=== PATIENT | female | born 1960 | race Caucasian/White ===

== ENCOUNTER 2020-07-04 07:50 | Emergency (ER) | payer BC ==
[~2020-07-04] VITALS: Ht 162.6 cm; Wt 71.7 kg
--- OUTSIDE RECORDS SUMMARY | ~2020-07-04 | XMS | Encounter Summary ---
Demographics + + + | Address | [address] | | | [place] [address] | + + + | Home Phone | | + + + | Preferred Language | Unknown | + + + | Marital Status | | + + + | Congregational Affiliation | 1076 | + + + | Race | White | + + + | Ethnic Group | Not or | + + + Author + + + | Author | [facility] | | | and [place] | + + + | Organization | [facility] | | | and [place] | + + + | Address | Unknown | + + + | Phone | Unavailable | + + + Support + + + + + | Name | Relationship | Address | Phone | + + + + + | Jose Watkins | ECON | [address] | | | | | [place] | | | | | [address] | | + + + + + | Dawit Kiser | ECON | Unknown | | + + + + + Care Team Providers + +------+ + | Care T Rail Turner Name | Role | Phone | + +------+ + PCP | Unavailable | + +------+ + Reason for Referral Service/Procedure (Routine) +--------+ + + + + + | Status | Reason | Specialty | Diagnoses / | Referred By | Referred To | | | | | Procedures | Contact | Contact | +--------+ + + + + + | Closed | Specialty | Gastroenterol | Diagnoses | Harri, | Harri, | | | Services | ogy | Screen for | Gulshan Escamilla MD | Gulshan Escamilla MD | | | Required | | colon cancer | [address], | | | | | Procedures | [place], [place] | [address] | | | | | [place] | [address] [place] | [place], | | | | | COLONOSCOPY, | [place], [place] | [place] [address] | | | | | DIAGNOSTIC | [address] | Phone: | | | | | [place] | Phone: | [phone] | | | | | COLONOSCOPY, | [phone] | Fax: | | | | | [place] | Fax: | [phone] | | | | | COLONOSCOPY, | [phone] | | | | | | REMV | | | | | | | LUCY [place]ES | | | +--------+ + + + + + Reason for Visit + +--------+ + | Reason | Onset | Comments | | | Date | | + +--------+ + | Appointment | 08/14/ | | | | 2013 | | + +--------+ + Encounter Details +--------+ + + + + | Date | Type | Department | Care Team | Description | +--------+ + + + + | 08/14/ | Telephone | [facility] | Gulshan Cifuentes MD | Appointment | | 2013 | | GASTROENTEROLOGY | [address], [facility] | | | | | [address] [facility] | [address] [place], [place] | | | | | [address] [place], [place] | [address] | | | | | [address] | | | | | | [phone] | | | +--------+ + + + + Social History + +-------+ +--------+------+ | Tobacco Use | Types | Packs/Day | Years | Date | | | | | Used | | + +-------+ +--------+------+ | Never Smoker | | | | | + +-------+ +--------+------+ + +---+---+---+ | Smokeless Tobacco: | | | | | Never Used | | | | + +---+---+---+ + + +---------+ + | Alcohol Use | Drinks/Week | oz/Week | Comments | + + +---------+ + | Yes | | | occasional | + + +---------+ + + + + | Sex Assigned at | Date Recorded | | | | + + + | Not on file | | + + + documented as of this encounter Miscellaneous Notes Telephone Encounter - Mónica Hein RN - 08/14/2014 4:11 PM PDTCalled Luisa and michael vann her Dr Cifuentes reviewed Dr Pérez's records and okayed scheduling colonoscopy only with IVCS. She's agreeable to this and glad she can do it in one trip. Reviewed PMH, PSH, meds and mary rgies with her as well as the prep instructions. Mailed prep instructions to her with map to [facility], questionnaire, Suprep coupon for help with co-pay, Suprep instructions, low residue di et. documented in t his encounter Plan of Treatment +--------+---------+ + + + | Date | Type | Specialty | Care Team | Description | +--------+---------+ + + + | 12/25/ | Office | Neurology | Sesar Hernandez, | | | 2020 | Visit | | YASMINE [place] | | | | | | [address] | | | | | | [place] [address] | | | | | | [phone] | | | | | | | | +--------+---------+ + + + | 01/16/ | Office | Cardiology | Tiffany Jonas, | | | 2020 | Visit | | MD [address] | | | | | | [place] | | | | | | [address] | | | | | | | | +--------+---------+ + + + + + +--------+ + + | Name | Type | Priori | Associated Diagnoses | Order Schedule | | | | ty | | | + + +--------+ + + | Ambulatory referral | Outpatient | Routin | Screen for colon | Expected: | | to Gastroenterology | Referral | e | cancer | 09/14/2014, Expires: | | | | | | 08/14/2015 | + + +--------+ + + documented as of this encounter Visit Diagnoses + + | Diagnosis | + + | Multiple sclerosis (HCC) - Primary Multiple sclerosis | + + | Screen for colon cancer Special screening for malignant neoplasms, colon | + + documented in this encounter"
--- OUTSIDE RECORDS SUMMARY | ~2020-07-04 | XMS | Encounter Summary ---
Demographics + + + | Address | [address] | | | [place] [address] | + + + | Home Phone | | + + + | Preferred Language | Unknown | + + + | Marital Status | | + + + | Anglican Affiliation | 1076 | + + + | Race | White | + + + | Ethnic Group | Not or | + + + Author + + + | Author | [facility] | | | and [place] | + + + | Organization | [facility] | | | and [place] | + + + | Address | Unknown | + + + | Phone | Unavailable | + + + Support + + + + + | Name | Relationship | Address | Phone | + + + + + | Jose Watkins | ECON | [address] | | | | | [place] | | | | | [address] | | + + + + + | Dawit Kiser | ECON | Unknown | | + + + + + Care Team Providers + +------+ + | Care Renal Technician Name | Role | Phone | + +------+ + | Derek Richards DO | PCP | | + +------+ + Reason for Visit +--------+--------+ + | Reason | Onset | Comments | | | Date | | +--------+--------+ + | Letter | 04/07/ | | | | 2020 | | +--------+--------+ + Encounter Details +--------+ + + + + | Date | Type | Department | Care Team | Description | +--------+ + + + + | 02/13/ | Telephone | [facility] | Sesar Hernandez, | Letter | | 2020 | | NEUROLOGY [address] | [address] | | | | | [address] | [facility] [address] | | | | | [place], [place] | [place] [address] | | | | | [address] | [phone] | | | | | [phone] | | | +--------+ + + + [...] + + +---------+ + | Yes | 2 Glasses of wine | 2.0 | | + + +---------+ + + + + | Sex Assigned at | Date Recorded | | | | + + + | Not on file | | + + + documented as of this encounter Miscellaneous Notes Telephone Encounter - Molly Wesley CMA - 02/14/2020 12:35 PM PDTTauni, here is the draft for the letter for Luisa to be part if a clean team documented in this encounter Plan of Treatment +--------+---------+ + + + | Date | Type | Specialty | Care Team | Description | +--------+---------+ + + + | 12/25/ | Office | Neurology | Sesar Hernandez, | | | 2020 | Visit | | Y[address]INE [place] | | | | | | [address] | | | | | | [place] [address] | | | | | | [phone] | | | | | | | | +--------+---------+ + + + | 01/16/ | Office | Cardiology | Tiffany Jonas, | | | 2020 | Visit | | MD [address] | | | | | | [place] | | | | | | [phone] | | | | | | | | +--------+---------+ + + + documented as of this encounter Visit Diagnoses Not on filedocumented in this encounter"
--- OUTSIDE RECORDS SUMMARY | ~2020-07-04 | XMS | Encounter Summary ---
Demographics + + + | Address | [address] | | | [place] [address] | + + + | Home Phone | | + + + | Preferred Language | Unknown | + + + | Marital Status | | + + + | Christian Affiliation | 1076 | + + + | Race | White | + + + | Ethnic Group | Not or | + + + Author + + + | Author | [facility] | | | and [place] | + + + | Organization | [facility] | | [...] [place] | | | | | [address] | | + + + + + | Dawit Kiser | ECON | Unknown | | + + + + + Care Team Providers + +------+ + | Care Inventory Control Associate Name | Role | Phone | + +------+ + | Derek Richards DO | PCP | | + +------+ + Reason for Visit + +--------+ + | Reason | Onset | Comments | | | Date | | + +--------+ + | Medication Refill | 12/06/ | | | | 2019 | | + +--------+ + Encounter Details +--------+--------+ + + + | Date | Type | Department | Care Team | Description | +--------+--------+ + + + | 12/06/ | Refill | [facility] | Sesar Hernandez, | Medication Refill | | 2019 | | NEUROLOGY [address] | [address] | | | | | [address] | [facility] [address] | | | | | [place], [place] | [place] [address] | | | | | [address] | [phone] | | | | | [phone] | | | +--------+--------+ + + + Social History + +-------+ [...] this encounter Miscellaneous Notes Telephone Encounter - Faviola Mccall Slip Maker - 12/06/2019 11:25 AM PSTPatie nt and pharmacy requesting 90 day supply. documented in this encounter Plan of Treatment +--------+---------+ + + + | Date | Type | Specialty | Care Team | Description | +--------+---------+ + + + | 12/25/ | Office | Neurology | Sesar Hernandez, | | | 2020 | Visit | | [address] | | | | | | [address] | | | | | | [place] [address] | | | | | | [phone] | | | | | | | | +--------+---------+ + + + | 01/16/ | Office | Cardiology | Tiffany Jonas, | | | 2020 | Visit | | [address] | | | | | | [place] | | | | | | [address] | | | | | | | | +--------+---------+ + + + documented as of this encounter Visit Diagnoses Not on filedocumented in this encounter"
--- OUTSIDE RECORDS SUMMARY | ~2020-07-04 | XMS | Encounter Summary ---
Demographics + + + | Address | [address] | | | [place] [address] | + + + | Home Phone | | + + + | Preferred Language | Unknown | + + + | Marital Status | | + + + | Islam Affiliation | 1076 | + + + | Race | White | + + + | Ethnic Group | Not or | + + + Author + + + | Author | [facility] | | | and [place] | + + + | Organization | [facility] | | | and [...] [place] | | | | | [address] | | + + + + + | Dawit Kiser | ECON | Unknown | | + + + + + Care Team Providers + +------+ + | Care Fast Food Server Name | Role | Phone | + +------+ + | Derek Richards DO | PCP | | + +------+ + Reason for Visit + + + | Reason | Comments | + + + | Follow-up | | + + + Evaluate & Treat (Routine) + +--------+ + + + + | Status | Reason | Specialty | Diagnoses / | Referred By | Referred To | | | | | Procedures | Contact | Contact | + +--------+ + + + + | Authorized | | | Diagnoses | Susie, | Mary, | | | | | Sensation | DO Derek | [place]aba | | | | | disturbance | [address] | [address] | | | | | of skin | [address]ri[address] | [address] | | | | | Procedures | [address] | [address] | | | | | NEURO FOLLOW | [place], | [place] | | | | | [place] | [place] | [address] | | | | | | [address] | Phone: | | | | | | Phone: | [phone] | | | | | | [phone] | Fax: | | | | | | Fax: | [phone] | | | | | | [phone] | | + +--------+ + + + + Encounter Details +--------+---------+ + + + | Date | Type | Department | Care Team | Description | +--------+---------+ + + + | 11/29/ | Office | [facility] | Sesar Hernandez, | Medication | | 2020 | Visit | NEUROLOGY [address] | [address] | monitoring encounter | | | | [address] | [address] | (Primary Dx) | | | | [place], [place] | [place] [address] | | | | | [address] | [phone] | | | | | [phone] | | | +--------+---------+ + + + Social History + +-------+ [...] + + documented as of this encounter Last Filed Vital Signs + + + + + | Vital Sign | Reading | Time Taken | Comments | + + + + + | Blood Pressure | 120/81 | 11/29/2019 10:54 AM | | | | | PST | | + + + + + | Pulse | 99 | 11/29/2019 10:54 AM | | | | | PST | | + + + + + | Temperature | - | - | | + + + + + | Respiratory Rate | - | - | | + + + + + | Oxygen Saturation | 99% | 11/29/2019 10:54 AM | | | | | PST | | + + + + + | Inhaled Oxygen | - | - | | | Concentration | | | | + + + + + | Weight | 75.2 kg (165 lb 12.8 | 11/29/2019 10:54 AM | | | | oz) | PST | | + + + + + | Height | 162.6 cm (5' 4") | 11/29/2019 10:54 AM | | | | | PST | | + + + + + | Body Mass Index | 28.46 | 11/29/2019 10:54 AM | | | | | PST | | + + + + + documented in this encounter Progress Notes Sesar Hernandez PA-C - 11/29/2019 10:45 AM PSTFormatting of this note might be different fro m the original. Neurologic Progress note Subjective: Patient ID: Luisa Watkins is a 59 y.o. female. HPI The patient returns today for follow up visit. She has relapsing-remitting multiple sclerosis. Interval history: Since last visit she reports she has been doing well overall. She has back pain which is i s pretty stable, takes tramadol 1-2 times daily as needed. 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 She takes short nap after work most days which helps for managing fatigue. No difficulty sleeping at night. No new focal neurological symptoms. She cares for her brother who has history of TBI with his finances and taking him to appoin tments. Increased stress at times, overall similar. She states not certain if Wellbutrin is working well. She has good days and some other day s with more feeling down or overwhelmed. She prefers not to increase or change the Wellbutr in at this time. She developed tongue numbness/paresthesia started early March 2018. The symptoms progressed over a few days to involve whole tongue and whole left side of face. No preceding infection, trauma, or dental procedure. No facial weakness or any other focal neurological symptoms. No difficulty swallow. MRI of the brain and cervical spine 04/09/2018 showed one new lesion left frontal area which doesn't correlate to new left facial and tongue numbness. No clear brainstem lesion. Left facial numbness resolved but has residual intermittent numbness of the tongue, less th an before. Diagnosis: She was diagnosed with multiple [place] [address] Bobby. She developed acute onset of right side numbness. She reports that she had abnormal MRI of the brain and cervical spine at C2. She had abnormal CSF study. She was diagnosed with mult iple sclerosis. Clinical course: Her clinical course has been characterized by right side numbness, Lhermi tte's phenomenon and chronic fatigue. Data: She had low Vitamin D level. She reports taking 5,000 IU Vit D consistently since 01/2014. MRI studies: MRI of the brain in January of 1999 reported as total 7 lesions, one with slight enhancement. MRI of the cervical spine on 02/27/99 reported as one lesion at C2 level. MRI of the brain in 04/2002 reported as no significant change. Repeated MRI of the brain on 10/13/2008 reported a few new lesions when compared to the stud y in 2001, total about 20 lesions total. No enhancement was reported. MRI of the brain and cervical spine at [facility] in [place] on 08/2012 with s table lesion burden in her brain, no enhancement. There was reported one new cervical cord lesion at C2 without enhancement, however according to her previous reports she has had cerv ical cord lesion at C2 since 1998. MRI brain [facility] 09/11/15 reported stable lesion burden without new or enha ncing lesions. Lumbar MRI 09/11/15 findings: 1) hyperlordotic lumbar curve 2) No pars defects 3) L5-S1 central disc bulge and high T2 signal intensity annular tear without neural imping ement 4) L4-5 broad based posterior disc bulge causing mild left L5 nerve root compression due t o subarticular recess stenosis. 5) Trace disc bulge at L3-4 without nerve root impingement 6) Mild tomoderate facet degenerative changes 7) Incidentally noted small retroperitoneal fluid collection ventral to T11 vertebral body having appearance of small seroma. Clinical relevance is uncertain. Repeated brain MRI 09/11/15 noted stable multiple sclerosis lesion burden overall. No new o r enhancing lesions. Other diagnostics: She was told that she had normal EEG study by Dr. [facility] and her somatosensory evoked p otential of lower extremities was abnormal. She had low Vit D level, on supplement. Last Vit D level 36 (04/2016). Disease modifying agent for multiple sclerosis : She started Avonex shortly after her diagnosis in 1998. She self discontinued Avonex for a bout 6-8 months in 2007. She changed to Rebif since 2007 due to increased symptoms with paresthesia and progression of her lesion burden. She has not been compliant with her Rebif injections for a few years off and on treatment. She changed to Tecfidera in February 2014, however she had significant side effects with back pain, body aches, diarrhea. She discontinued Tecfidera. With re-challenge she had recurren t symptoms. She discontinued the Tecfidera since March 2014. She has been off and on Rebif medication due to injection fatigue and difficulty stay in e routine of doing her injection. She does not have significant side effects for Rebif. She re-started Rebif consistently since early 2016. The following elements of the patient's history were reviewed and updated as appropriate. T hey are available elsewhere in the patient record. allergies, current medications, past fam karla history, past medical history, past social history, past surgical history and problem li st Review of Systems Constitutional: Positive for fatigue. Negative for activity change, appetite change, chills , diaphoresis, fever and unexpected weight change. HENT: Negative. Eyes: Negative for visual disturbance. Respiratory: Negative for cough, shortness of breath and wheezing. Cardiovascular: Negative for chest pain, palpitations and leg swelling. Gastrointestinal: Negative for abdominal pain, diarrhea, nausea and vomiting. Genitourinary: Negative for difficulty urinating and frequency. Musculoskeletal: Positive for back pain and myalgias. Negative for arthralgias, gait proble m, joint swelling, neck pain and neck stiffness. Skin: Negative for rash. Neurological: Positive for dizziness (if puts head down and back up quickly) and numbness ( tongue, not new). Negative for tremors, seizures, syncope, facial asymmetry, speech difficul ty, weakness and headaches. Psychiatric/Behavioral: Positive for dysphoric mood (good mood overall, occasional feeling lack of motivation, fatigue, stress). Negative for behavioral problems, confusion, decreased concentration and sleep disturbance. The patient is not nervous/anxious. All other systems reviewed and are negative. Objective: BP 120/81 | Pulse 99 | Ht 1.626 m (5' 4") | Wt 75.2 kg (165 lb 12.8 oz) | SpO2 99% | B IN 28.46 kg/m Neurologic Exam Mental Status Oriented to person, place, and time. Level of consciousness: alert Knowledge: good. Cranial Nerves CN II Visual gorman full to confrontation. Visual acuity: normal with correction CN III, IV, Pupils are equal, round, and reactive to light. Extraocular motions are normal. CN V Facial sensation intact. CN VII Facial expression full, symmetric. CN VIII Hearing: intact CN IX, X CN IX normal. CN X normal. CN XI Right sternocleidomastoid strength: normal Left sternocleidomastoid strength: normal Right trapezius strength: normal Left trapezius strength: normal CN XII CN XII normal. Motor Exam Muscle bulk: normal Overall muscle tone: normal Strength Strength 5/5 except as noted. Left shoulder not tested due to pain/recent injury. Remainder is 5/5 throughout. Sensory Exam Light touch normal. Pinprick normal. Gait, Coordination, and Reflexes Gait Gait: normal Tremor Resting tremor: absent Physical Exam Eyes: Extraocular Movements: EOM normal. Pupils: Pupils are equal, round, and reactive to light. Neurological: Mental Status: She is oriented to person, place, and time. Gait: Gait is intact. Assessment and Plan: 1) Relapsing-remitting type of multiple sclerosis diagnosed in 1998. She has been treated with Avonex initially and changed to Rebif since 2007. Overall since on Rebif she has stable course without clear new exacerbation, however over t conor she has injection fatigue and difficulty with compliance. She changed to Tecfidera in February 2014, however she developed significant side effects with body aches, worsening back pain and diarrhea. She restarted Rebif end of May 2014, however was off and on her treatment for a few years. last brain MRI 09/11/15 with no new or enhancing lesions. She prefers not to have frequent repeated MRI studies unless she has new symptoms/changes. Continue Rebif injections. Normal LFT and CBC 05/2019. Repeat LFT in [facility] [place], printed order given. 2) Chronic low back pain. Failed physical therapy. Encourage continue regular exercise/activity as tolerated. She takes once to twice daily tramadol with good benefit. Follow up 6 months or sooner if needed. documented in this e ncounter Plan of Treatment +--------+---------+ + + + | Date | Type | Specialty | Care Team | Description | +--------+---------+ + + + | 12/25/ | Office | Neurology | Sesar Hernandez, | | | 2020 | Visit | | [address] | | | | | | [address] | | | | | | [place] [address] | | | | | | [phone] | | | | | | | | +--------+---------+ + + + | 01/16/ | Office | Cardiology | Tiffany Jonas, | | | 2020 | Visit | | [address] | | | | | | [place] | | | | | | [address] | | | | | | | | +--------+---------+ + + + + +------+--------+ + + | Name | Type | Priori | Associated Diagnoses | Order Schedule | | | | ty | | | + +------+--------+ + + | Hepatic Function | Lab | Routin | Medication | 1 Occurrences | | Panel | | e | monitoring encounter | starting 11/29/2019 | | | | | | until 11/29/2020 | + +------+--------+ + + documented as of this encounter Visit Diagnoses + + | Diagnosis | + + | Medication monitoring encounter - Primary Encounter for therapeutic drug monitoring | + + documented in this encounter
--- OUTSIDE RECORDS SUMMARY | ~2020-07-04 | XMS | Encounter Summary ---
Demographics + + + | Address | [address] | | | [place] [address] | + + + | Home Phone | | + + + | Preferred Language | Unknown | + + + | Marital Status | | + + + | Scientologist Affiliation | 1076 | + + + | Race | White | + + + | Ethnic Group | Not or | + + + Author + + + | Author | [facility] | | | and [place] | + + + | Organization | [facility] | | | and [...] [place] | | | | | [address] | | + + + + + | Dawit Kiser | ECON | Unknown | | + + + + + Care Team Providers + +------+ + | Care Professional Fee Coder Name | Role | Phone | + +------+ + | Derek Richards DO | PCP | | + +------+ + Encounter Details +--------+ + + + + | Date | Type | Department | Care Team | Description | +--------+ + + + + | 04/20/ | Hospital | [facility] | Conversion | Pain | | 2018 | Encounter | CONVERSION [address] | Transaction, | | | | | [address] | Provider Unknown | | | | | [place], [place] | [phone] | | | | | [address] | | | | | | [phone] | | | +--------+ + + + [...] + + documented as of this encounter Medications at Time of Discharge + + + +---------+ + + | Medication | Sig | Dispensed | Refills | Start | End Date | | | | | | Date | | + + + +---------+ + + | armodafinil | Take 150 mg by mouth | | 0 | | | | (NUVIGIL) 150 mg | Daily as needed. | | | | | | tablet | | | | | | + + + +---------+ + + | cholecalciferol | Take 5,000 Units by | | 0 | | | | (VITAMIN D-3) 1,000 | mouth Daily. | | | | | | units capsule | | | | | | + + + +---------+ + + | ibuprofen | Take 100 mg by mouth | | 0 | | | | (ADVIL,MOTRIN) 100 | as needed. | | | | | | MG tablet | | | | | | + + + +---------+ + + | Melatonin 10 MG | Take 10 mg by mouth | | 0 | | | | TABS | nightly. | | | | | + + + +---------+ + + | estradiol | Place 1 patch onto | | 0 | | | | (TEDDY-DOT) 0.0375 | the skin Twice a | | | | 0 | | MG/24HR | week. | | | | | + + + +---------+ + + | interferon beta-1a | Inject 44 mcg under | | 0 | | | | (REBIF) 44 | the skin Three times | | | | 0 | | MCG/0.5ML injection | a week. | | | | | + + + +---------+ + + | metoprolol | TAKE 1 TABLET | | 0 | 04/18/20 | | | succinate | NIGHTLY | | | 16 | 0 | | (TOPROL-XL) 50 mg 24 | | | | | | | hr tablet | | | | | | + + + +---------+ + + | metoprolol | Take 50 mg by mouth | | 0 | | | | succinate | Daily. | | | | 0 | | (TOPROL-XL) 50 mg 24 | | | | | | | hr tablet | | | | | | + + + +---------+ + + | Multiple | Take 1 tablet by | | 0 | | | | Vitamins-Minerals | mouth Daily. | | | | 0 | | (MULTIVITAMIN PO) | | | | | | + + + +---------+ + + | traMADol (ULTRAM) | Take 50 mg by mouth | | 0 | | | | 50 mg tablet | nightly as needed. | | | | 9 | + + + +---------+ + + documented as of this encounter Plan of Treatment +--------+---------+ + + + | Date | Type | Specialty | Care Team | Description | +--------+---------+ + + + | 12/25/ | Office | Neurology | MickeySesar yao, | | | 2020 | Visit | | [place] | | | | | | [address] | | | | | | [place] [address] | | | | | | [phone] | | | | | | | | +--------+---------+ + + + | 01/16/ | Office | Cardiology | Tiffany Jonas, | | | 2020 | Visit | | MD Hong [place] | | | | | | [facility] [place] | | | | | | [address] | | | | | | | | +--------+---------+ + + + documented as of this encounter Procedures + +--------+ + + + | Procedure Name | Priori | Date/Time | Associated Diagnosis | Comments | | | ty | | | | + +--------+ + + + | MRI BRAIN W WO | Routin | 04/09/2018 | | Results for this | | CONTRAST | e | 11:53 PM | | procedure are in the | | | | PDT | | results section. | + +--------+ + + + documented in this encounter Results MRI Brain w wo Contrast (04/09/2018 11:53 PM PDT) + + | Specimen | + + | | + + + + + | Narrative | Performed At | + + + | This is a non-reportable procedure without a radiologist report and | | | is used for image storage only | | + + + + + | Procedure Note | + + | Philippe Orozco - 06/22/2019 1:29 AM PDT This is a non-reportable procedure | | without a radiologist report and isused for image storage only | + + documented in this encounter Visit Diagnoses + + | Diagnosis | + + | Pain Generalized pain | + + documented in this encounter"
--- OUTSIDE RECORDS SUMMARY | ~2020-07-04 | XMS | Encounter Summary ---
Demographics + + + | Address | [address] | | | [place] [address] | + + + | Home Phone | | + + + | Preferred Language | Unknown | + + + | Marital Status | | + + + | Mormonism Affiliation | 1076 | + + + | Race | White | + + + | Ethnic Group | Not or | + + + Author + + + | Author | [facility] | | | and [place] | + + + | Organization | [facility] | | | [...] [place] | | | | | [address] | | + + + + + | Dawit Kiser | ECON | Unknown | | + + + + + Care Team Providers + +------+ + | Care Communications Representative Name | Role | Phone | + +------+ + | Derek Richards DO | PCP | | + +------+ + Reason for Visit + +--------+ + | Reason | Onset | Comments | | | Date | | + +--------+ + | Medication Problem | 12/22/ | wrong prescription | | | 2019 | | + +--------+ + Encounter Details +--------+--------+ + + + | Date | Type | Department | Care Team | Description | +--------+--------+ + + + | 12/22/ | Refill | [facility] | Sesar Hernandez, | Medication Problem | | 2019 | | NEUROLOGY [address] | [address] | (wrong prescription) | | | | [address] | [facility] | | | | | [place], [place] | [place] [address] | | | | | [address] | [phone] | | | | | [phone] | | | +--------+--------+ + + + [...] this encounter Miscellaneous Notes Telephone Encounter - Remigio Vazquez, Search Manager - 12/22/2019 10:38 AM PSTCalnorma vann spoke to [facility] with [facility]'s [facility]. She stated that the patient has been getting t he syringes and she was shipped the auto injections. I let her know that it was okay for the m to fill the syringes for the patent. elephone Encounter - Teresa Ashley - 12/22/2019 10:24 A M PSTCorin, is calling regarding Medication Problem (wrong prescription) and would like a call back. Additional Call Details: Please call [phone] regarding interferon beta-1a (REBIF REBI DOSE) 44 mcg/0.5 mL injection. Patient indicated that she uses the syringes. If this is a symptom based call, was patient offered triage? Not Applicable If this is a symptom based call and you were unable to immediately transfer the call to a blessing mitchell electric shovel operator was caller made aware that if at any time she feels it is an emergency they sh ould call 911 or go to the nearest emergency room? not applicable documented in this encounter Plan of Treatment +--------+---------+ + + + | Date | Type | Specialty | Care Team | Description | +--------+---------+ + + + | 12/25/ | Office | Neurology | Sesar Hernandez, | | | 2020 | Visit | | Y[place]INE [place]INE | | | | | | [address] | | | | | | [place] [address] | | | | | | [phone] | | | | | | | | +--------+---------+ + + + | 01/16/ | Office | Cardiology | Tiffany Jonas, | | | 2020 | Visit | | MD [place] [address] | | | | | | [place] | | | | | | [phone] | | | | | | | | +--------+---------+ + + + documented as of this encounter Visit Diagnoses Not on filedocumented in this encounter"
--- OUTSIDE RECORDS SUMMARY | ~2020-07-04 | XMS | Encounter Summary ---
Demographics + + + | Address | [address] | | | [place] [address] | + + + | Home Phone | | + + + | Preferred Language | Unknown | + + + | Marital Status | | + + + | Hoahaoism Affiliation | 1076 | + + + | Race | White | + + + | Ethnic Group | Not or | + + + Author + + + | Author | [facility] | | | and [place] | + + + | Organization | [facility] | | | and [...] [place] | | | | | [address] | | + + + + + | Dawit Kiser | ECON | Unknown | | + + + + + Care Team Providers + +------+ + | Care Real Estate Services Administrator Name | Role | Phone | + +------+ + | Derek Richards DO | PCP | | + +------+ + Reason for Visit + +--------+ + | Reason | Onset | Comments | | | Date | | + +--------+ + | Appointment | 06/18/ | change to virtual appointment | | | 2019 | | + +--------+ + Encounter Details +--------+ + + + + | Date | Type | Department | Care Team | Description | +--------+ + + + + | 06/18/ | Telephone | [facility] | Sesar Hernandez | Appointment (change | | 2019 | | NEUROLOGY [address] | [place] [address] | to virtual | | | | [address] | [address] | appointment) | | | | [place] | [place] [address] | | | | | [address] | [phone] | | | | | [phone] | | | +--------+ + + + [...] Miscellaneous Notes Telephone Encounter - Remigio Vazquez, Urologic Nurse - 06/18/2020 4:19 PM PDTCalled cash erwin and let her know that Sesar is unable to do virtaul visits for any [place] patient's an d we do have to see them in office. She voiced understanding and was screened. Electronicall y signed by Remigio Vazquez Urologic Nurse at 06/18/2020 4:20 PM PDTTelephone Encounter - Merle Sullivan - 06/18/2020 3:03 PM PDTBrenda, is calling regarding Appointment (change to virtual appointment) and would like a call back. Additional Call Details: Patient stated appointment should be a video appointment. Please call back to confirm appointment has been changed. Home number If this is a symptom based call, was patient offered triage? Not Applicable If this is a symptom based call and you were unable to immediately transfer the call to a blessing mitchell corporate development officer was caller made aware that if at [...] | | | | | [place] [address] | | | | | | [phone] | | | | | | | | +--------+---------+ + + + | 01/16/ | Office | Cardiology | Tiffany Jonas, | | | 2020 | Visit | | MD [address] | | | | | | [place] | | | | | | [address] | | | | | | | | +--------+---------+ + + + documented as of this encounter Visit Diagnoses Not on filedocumented in this encounter"
--- OUTSIDE RECORDS SUMMARY | ~2020-07-04 | XMS | Clinical Summary ---
Demographics + + + | Address | [address] | | | [place] [address] | + + + | Home Phone | | + + + | Preferred Language | Unknown | + + + | Marital Status | | + + + | Scientology Affiliation | 1076 | + + + | Race | White | + + + | Ethnic Group | Not or | + + + Author + + + | Author | [facility] | | | and [place] | + + + | Organization | [facility] | | | and [...] [place] | | | | | [address] | | + + + + + | Dawit Kiser | ECON | Unknown | | + + + + + Care Team Providers + +------+ + | Care Inspector Cold Working Name | Role | Phone | + +------+ + | Derek Richards DO | PCP | | + +------+ + Allergies + + + + + + | Active Allergy | Reactions | Severity | Noted | Comments | | | | | Date | | + + + + + + | Clindamycin | Other (See Comments) | Medium | 08/19/20 | colitis | | | | | 12 | antibiotic induced | | | | | | colitis | + + + + + + | Codeine | Nausea Only, Rash | Medium | 08/19/20 | | | | | | 12 | | + + + + + + Medications + + + +---------+------+------+-------+ | Medication | Sig | Dispensed | Refills | Star | End | Statu | | | | | | t | Date | s | | | | | | Date | | | + + + +---------+------+------+-------+ | cholecalciferol | Take 5,000 Units by | | 0 | | | Activ | | (VITAMIN D-3) 1,000 | mouth Daily. | | | | | e | | units capsule | | | | | | | + + + +---------+------+------+-------+ | armodafinil | Take 150 mg by mouth | | 0 | | | Activ | | (NUVIGIL) 150 mg | Daily as needed. | | | | | e | | tablet | | | | | | | + + + +---------+------+------+-------+ | ibuprofen | Take 100 mg by mouth | | 0 | | | Activ | | (ADVIL,MOTRIN) 100 | as needed. | | | | | e | | MG tablet | | | | | | | + + + +---------+------+------+-------+ | Melatonin 10 MG | Take 10 mg by mouth | | 0 | | | Activ | | TABS | nightly. | | | | | e | + + + +---------+------+------+-------+ | Multiple | Take 1 tablet by | | 0 | | | Activ | | Vitamins-Minerals | mouth daily. | | | | | e | | (MULTIVITAMIN PO) | | | | | | | + + + +---------+------+------+-------+ | Fexofenadine HCl | Take 30 mg by mouth | | 0 | | | Activ | | (YESI PO) | daily. | | | | | e | + + + +---------+------+------+-------+ | estradiol | TK 1 T PO QD | | 0 | 02/1 | | Activ | | (ESTRACE) 1 mg | | | | 1/20 | | e | | tablet | | | | 19 | | | + + + +---------+------+------+-------+ | metoprolol | TAKE 1 TABLET | 30 | 0 | 01/1 | | Activ | | succinate | NIGHTLY | tablet | | 5/20 | | e | | (TOPROL-XL) 50 mg 24 | | | | 20 | | | | hr tablet | | | | | | | + + + +---------+------+------+-------+ | interferon beta-1a | Inject 44 mcg into | 12 mL | 5 | 01/2 | | Activ | | (REBIF REBIDOSE) 44 | the skin three times | | | 1/20 | | e | | mcg/0.5 mL | weekly. | | | 20 | | | | injection | | | | | | | + + + +---------+------+------+-------+ | traMADol (ULTRAM) | take 1 tablet by | 120 | 3 | 07/2 | | Activ | | 50 mg tablet | mouth every 6 hours | tablet | | 3/20 | | e | | | if needed for pain. | | | 20 | | | + + + +---------+------+------+-------+ | buPROPion | May increase to | 180 | 1 | 08/1 | | Activ | | (WELLBUTRIN XL) 150 | twice daily after 4 | tablet | | 1/20 | | e | | mg 24 hr tablet | weeks if needed.. | | | 20 | | | + + + +---------+------+------+-------+ | buPROPion | Take 1 tablet by | 180 | 1 | 11/10 | 06/09 | Disco | | (WELLBUTRIN SR) 100 | mouth 2 times daily. 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 55yo WF, doing relatively well, | | although she admits occasional palpitations, usually in the | | evenings while at rest. They usually brief in nature, no | | lightheadedness, chest discomfort, or shortness of breath | | associated with this. She remains active. Since last seen, one | | year ago, no surgical procedures or hospitalizations. Recent | | exercise tolerance tests show no ischemia, functional capacity is | | good, low risk. Tolerating medications. No changes in therapy. | | Yearly labs with PCP anticipated.Hx CABG: noHx PCI/stent: noHx | | ICD/Pacemaker: noLast Cath: naLast Echo: naLast Stress Test, | | 09/04/2015: 9:00min Biju, ECG (-) for ischemia, no arrhythmias, | | low risk.ECG, 08/11/2013: NSR (95bpm). | + + + + + | Multiple sclerosis | 01/08/2000 | + + + + + | Overview: Last Assessment & Plan: | | MS, managed by TAMIE Cornell and Dr Mcfarland. | + + Encounters +--------+ + + + + | Date | Type | Specialty | Care Team | Description | +--------+ + + + + | 06/19/ | Office | Neurology | Sesar Hernandez, | Multiple sclerosis | | 2020 | Visit | | PA-C | ([facility]) (Primary Dx) | +--------+ + + + + | 06/19/ | Telephone | Neurology | Sesar Hernandez, | Pharmacy / Med | | 2019 | | | [place] | (question) | +--------+ + + + + | 06/18/ | Telephone | Neurology | Sesar Hernandez, | Appointment (change | | 2019 | | | [place] | to virtual | | | | | | appointment) | +--------+ + + + + | 05/31/ | Refill | Neurology | Sesar Hernandez, | Medication Refill | | 2019 | | | PA-C | | +--------+ + + + + from Last 3 Months Family History + + +------+ + | Medical History | Relation | Name | Comments | + + +------+ + | Cancer | Brother | | Half brother/colon cancer | + + +------+ + | Cancer | Brother | | colon cancer | + + +------+ + | Kidney disease | Brother | | | + + +------+ + | Heart disease | Father | | | + + +------+ + | Cancer | Mother | | breast cancer, again in 2nd breast/breast | | | | | cancer | + + +------+ + | Diabetes | Mother | | | + + +------+ + | Heart disease | Mother | | | + + +------+ + | High cholesterol | Mother | | | + + +------+ + | Hypertension | Mother | | | + + +------+ + | Ovarian cancer | Other | | Paternal cousin | + + +------+ + | Diabetes | Paternal | | | | | Aunt | | | + + +------+ + + +------+ + + | Relation | Name | Status | Comments | + +------+ + + | Brother | | | | + +------+ + + | Brother | | | | + +------+ + + | Brother | | | | + +------+ + + | Brother | | | | + +------+ + + | Father | | | [place] | | | | (Age | | | | | 72) | | + +------+ + + | Mother | | | metastatic breast cancer | | | | (Age | | | | | 78) | | + +------+ + + | Other | | | | + +------+ + + | Paternal Aunt | | | | + +------+ + + Social History + +-------+ +--------+------+ [...] on file | | + + + Last Filed Vital Signs + + + + + | Vital Sign | Reading | Time Taken | Comments | + + + + + | Blood Pressure | 152/90 | 06/19/2020 11:19 AM | | | | | PDT | | + + + + + | Pulse | 77 | 06/19/2020 11:19 AM | | | | | PDT | | + + + + + | Temperature | 37.2 C (99 F) | 04/22/2018 9:29 AM | | | | | PDT | | + + + + + | Respiratory Rate | 16 | 09/14/2014 8:40 AM | | | | | PST | | + + + + + | Oxygen Saturation | 100% | 06/19/2020 11:19 AM | | | | | PDT | | + + + + + | Inhaled Oxygen | - | - | | | Concentration | | | | + + + + + | Weight | 75.1 kg (165 lb 9.6 | 06/19/2020 11:19 AM | | | | oz) | PDT | | + + + + + | Height | 162.6 cm (5' 4") | 06/19/2020 11:19 AM | | | | | PDT | | + + + + + | Body Mass Index | 28.43 | 06/19/2020 11:19 AM | | | | | PDT | | + + + + + Plan of Treatment +--------+---------+ + + + | Date | Type | Specialty | Care Team | Description | +--------+---------+ + + + | 12/25/ | Office | Neurology | Sesar Hernandez, | | | 2020 | Visit | | [place] | | | | | | [address] | | | | | | [place] [address] | | | | | | [phone] | | | | | | | | +--------+---------+ + + + | 01/16/ | Office | Cardiology | Tiffany Jonas, | | | 2020 | Visit | | [address] | | | | | | [place] | | | | | | [address] | | | | | | | | +--------+---------+ + + + + + + + + | Health Maintenance | Due Date | Last | Comments | | | | Done | | + + + + + | Hepatitis C | | | | | Screening | 1 | | | + + + + + | Medication | | | | | Management | 1 | | | + + + + + | Urine Drug Screening | | | | | | 7 | | | + + + + + | Vaccine: | | | | | Dtap/Tdap/Td (1 - | 0 | | | | Tdap) | | | | + + + + + | Cervical Cancer | | | | | Screening (Pap) | 1 | | | + + + + + | Vaccine: Zoster (1 | | | | | of 2) | 1 | | | + + + + + | Breast Cancer | | | | | Screening | 6 | | | + + + + + | Med Mgmt: BUN | | 03/30/20 | | | | 9 | 18, | | | | | 01/11/20 | | | | | 14 | | + + + + + | Med Mgmt: Cr | | 03/30/20 | | | | 9 | 18, | | | | | 01/11/20 | | | | | 14 | | + + + + + | Med Mgmt: Vit D | | 03/30/20 | | | | 9 | 18, | | | | | 04/21/20 | | | | | 17, | | | | | 01/11/20 | | | | | 14 | | + + + + + | Vaccine: Influenza | | | | | (#1) | 0 | | | + + + + + | Colorectal Cancer | | 09/14/20 | | | Screening | 4 | 14, | | | (Colonoscopy) | | 09/14/20 | | | | | 14 | | + + + + + Results Not on filefrom Last 3 Months Insurance +---------+--------+ +--------+ +---------+------+ | Payer | Benefi | Subscriber | Effect | Phone | Address | Type | | | t Plan | ID | marika | | | | | | / | | Dates | | | | | | Group | | | | | | +---------+--------+ +--------+ +---------+------+ | BCBS | BCBS | [id number] | 11/09/19 | | | PPO | | | OOS | 7 | 11-Pre | | | | | | PPO | | sent | | | | +---------+--------+ +--------+ +---------+------+ | PREMERA | PREMER | [id number] | 11/09/19 | [phone] | | PPO | | | A | 7 | 18-Pre | 0 | | | | | PREFER | | sent | | | | | | RED | | | | | | +---------+--------+ +--------+ +---------+------+ + +--------+ +--------+ + + | Guarantor Name | Accoun | Relation to | Date | Phone | Billing Address | | | t Type | Patient | of | | | | | | | | | | + +--------+ +--------+ + + | Luisa Watkins | Person | Self [birth year] | [address] | | | al/Fam | | 1960 | [phone] | [place] | | | [place] | | | [address] (Home) | [address] | + +--------+ +--------+ + + | Luisa Watkins | Person | Self [birth year] | [address] | | | al/Fam | | 1960 | [phone] | [place] | | | [place] | | | 8 (Home) | [address] | | | | | | [phone] | | | | | | | 1 (Work) | | + +--------+ +--------+ + + Advance Directives + + + + + | Type | Date Recorded | Patient | Explanation | | | | Lotus Notes Developer | | + + + + + | Power of | | | | | Coating Inspector | | | | + + + + + | Advance | 09/14/2014 6:58 | | | | Directive | AM | | | + + + + +
--- OUTSIDE RECORDS SUMMARY | ~2020-07-04 | XMS | Encounter Summary ---
Demographics + + + | Address | [address] | | | [place] [address] | + + + | Home Phone | | + + + | Preferred Language | Unknown | + + + | Marital Status | | + + + | Pentecostalism Affiliation | [id number] | + + + | Race | White | + + + | Ethnic Group | Not or | + + + Author + + + | Author | [facility] | | | and [place] | + + + | Organization | [facility] | | | and [...] [place] | | | | | [address] | | + + + + + | Dawit Kiser | ECON | Unknown | | + + + + + Care Team Providers + +------+ + | Care Management Engineer Name | Role | Phone | + +------+ + | Derek Richards DO | PCP | | + +------+ + Encounter Details +--------+---------+ + + + | Date | Type | Department | Care Team | Description | +--------+---------+ + + + | 09/14/ | Surgery | [facility] | Gulshan Cifuentes MD | COLONOSCOPY | | 2014 | | MED [facility] | [address], [place] | | | | | [address] | [address] [place], [place] | | | | | [place], [place] | [address] | | | | | [address] | | | | | | [phone] | | | +--------+---------+ + + + [...] + + + | Blood Pressure | 96/48 | 09/14/2014 9:30 AM | | | | | PST | | + + + + + | Pulse | 81 | 09/14/2014 9:30 AM | | | | | PST | | + + + + + | Temperature | 37 C (98.6 F) | 09/14/2014 7:57 AM | | | | | PST | | + + + + + | Respiratory Rate | 16 | 09/14/2014 8:40 AM | | | | | PST | | + + + + + | Oxygen Saturation | 95% | 09/14/2014 9:30 AM | | | | | PST | | + + + + + | Inhaled Oxygen | - | - | | | Concentration | | | | + + + + + | Weight | 74.5 kg (164 lb 3.9 | 09/14/2014 7:57 AM | | | | oz) | PST | | + + + + + | Height | 162.6 cm (5' 4") | 09/14/2014 7:57 AM | | | | | PST | | + + + + + | Body Mass Index | 28.19 | 09/14/2014 7:57 AM | | | | | PST | | + + + + + documented in this encounter Discharge Instructions Pamela Abbasi RN - 09/14/2014Formatting of this note might be diffe rent from the original. Colorectal Cancer Screening Colorectal cancer (cancer in the colon or rectum) is aleading cause of cancer deaths in [facility]. But it doesn t have to be. When this cancer is found and removed early, the chances of a full recovery are very good. Because colorectal cancer rarely causes sympto ms in its early stages, screening for the disease is important. It s even more crucial if you have risk factors for the disease. Learn more about colorectal cancer and its risk facto rs. Then talk to your doctor about being screened. You could be saving your own life. Risk Factors for Colorectal Cancer Your risk of having colorectal cancer increases if you: Are 50 years of age or older Have a family history or personal history of colorectal cancer orpolyps Have a personal history of type 2 diabetes, Crohn s disease, or ulcerative colitis Have an inherited genetic syndrome like Ybarra syndrome (also known as HNPCC) or familial adenomatous polyposis Are very overweight Smoke Drink a lot of alcohol Eat a lot of red or processed meat The Colon and Rectum A VALERIA can detect a growth in the rectum or anus. Waste from food you eat enters the colon from the small intestine. As it travels through th e colon, the waste (stool) loses water and becomes more solid. Intestinal muscles push it to osman the sigmoid the last section of the colon. Stool then moves into the rectum, where it s stored until it s ready to leave the body during a bowel movement. How Cancer Develops Polyps are growths that form on the inner lining of the colon or rectum. Most are benign, w hich means they aren t cancerous. But over time, some polyps can become malignant (cancero us). This occurs when cells in these polyps begin growing abnormally. In time, malignant nico ls invade more and more of the colon and rectum. The cancer may also spread to nearby organs or lymph nodes or to other parts of the body. Finding and removing polyps can help prevent cancer from ever forming. Your Screening Screening means looking for a medical problem before you have symptoms. During screening fo r colorectal cancer, your doctor will ask about your medical history, examine you, and do on e or more tests. History and Exam Medical history. Your doctor will ask about your medical history. Mention if a family me mber has had colon cancer or polyps. Also mention any health problems you have had in the pa st. Digital rectal exam (VALERIA). During a VALERIA, the doctor inserts a lubricated gloved finger i nto the rectum. The test is painless and takes less than a minute. Doctors agree that this t est alone is not enough to screen for colorectal cancer. Screening Test Options Fecal occult blood test or fecal immunochemical test These tests check for occult blood in stool (blood you can t see). Hidden blood may be a sign of colon polyps or cancer. A small sample of stool is tested for blood in a laboratory. Most often, you collect this sample at home using a kit your doctor gives you. Follow the i nstructions carefully for using this kit. You might need to avoid certain foods and medicati ons before the test, as directed. Barium enema with contrast This test uses X-rays to provide images of the entire colon and rectum. The day before this test, you will need to do a bowel prep to clean out the colon and rectum. A bowel prep is a liquid diet plus strong laxatives or enemas. You will be awake for the test, but you may be given medication to help you relax. At the start of the test, a radiologist (a doctor who s pecializes in imaging tests) places a soft tube into the rectum. The tube is used to fill th e colon with a contrast liquid (barium) and air. This can be uncomfortable for some people. The liquid helps the colon show up clearly on the X-rays. Because the test uses X-rays, it e xposes you to a small amount of radiation. Virtual colonoscopy This exam is also called a CT colonography. Ituses a series of X-ray photographs to creat e a 3-D view of the colon and rectum. The day before the test, you will need to do a bowel p rep to clean out your colon. Your health care provider will give you instructions on how to do this. During the procedure, you will lie on a table that is part of a special X-ray machi ne called a CT machine. A small tube will be placed into your rectum to fill the colon and r ectum with air. This can be uncomfortable for some people. Then, the table will move into th e machine and photos will be taken of your colon and rectum. A computer will combine these p hotos to create a 3-D picture. Because the test uses X-rays, it exposes you to a small amoun t of radiation. Scope exams Colonoscopy.This is the best test doctors have for finding and removing colorectal maninder yps. The day before the test, you will do a bowel prep. This is a liquid diet plus a strong laxative solution or an enema. The bowel prep willcleanse your colon. You will be given in structions for this. Just before the test, you are given a medication to make you sleepy. Th en, a long, flexible, lighted tube called a colonoscope is gently inserted into the rectum a nd guided through the entire colon. Images of the colon are viewed on a video screen. Any po lyps that are found are removed and sent to a lab for testing. If a polyp can t be removed , a sample of tissue is taken and the polyp might be removed later during surgery. Sigmoidoscopy.This test is similar to colonoscopy, but focuses only on the sigmoid col on and rectum. As with colonoscopy, bowel prep must be done the day before this test. It iglesia ht not need to be as complete as the bowel prep for a colonoscopy. You are awake during the procedure, but you may be given medication to help you relax. During the test, the doctor gu ides a thin, flexible, lighted tube called a sigmoidoscope through your rectum and lower col on. The images are displayed on a video screen. Polyps are removed, if possible, and sent to a lab for testing. Colonoscopy is the only screening test that lets your doctor see the entire colon and rectu m. This test also lets your doctor remove any pieces of tissue that need to be looked at by a lab. If something suspicious is found using any of these other tests, you will likely need a colonoscopy. When to Call Your Doctor After a Test Call your doctor if you have any of the following after any screening test: Bleeding Fever over 101F (38.8C) Abdominal pain [id number] [facility], [address] [place] [address], [place] [address]. All rights reserve d. This information is not intended as a substitute for professional medical care. Always fo llow your healthcare professional's instructions. documented in this encounter Medications at Time of Discharge + + + +---------+--------+ + | Medication | Sig | Dispensed | Refills | Start | End Date | | | | | | Date | | + + + +---------+--------+ + | armodafinil | Take 150 mg by mouth | | 0 | | | | (NUVIGIL) 150 mg | Daily as needed. | | | | | | tablet | | | | | | + + + +---------+--------+ + | cholecalciferol | Take 5,000 Units by | | 0 | | | | (VITAMIN D-3) 1,000 | mouth Daily. | | | | | | units capsule | | | | | | + + + +---------+--------+ + | ibuprofen | Take 100 mg by mouth | | 0 | | | | (ADVIL,MOTRIN) 100 | as needed. | | | | | | MG tablet | | | | | | + + + +---------+--------+ + | Melatonin 10 MG | Take 10 mg by mouth | | 0 | | | | TABS | nightly. | | | | | + + + +---------+--------+ + | estradiol | Place 1 patch onto | | 0 | | | | (VIVELLE-DOT) 0.0375 | the skin Twice a | | | | 0 | | MG/24HR | week. | | | | | + + + +---------+--------+ + | interferon beta-1a | Inject 44 mcg under | | 0 | | | | (REBIF) 44 | the skin Three times | | | | 0 | | MCG/0.5ML injection | a week. | | | | | + + + +---------+--------+ + | metoprolol | Take 50 mg by mouth | | 0 | | | | succinate | Daily. | | | | 0 | | (TOPROL-XL) 50 mg 24 | | | | | | | hr tablet | | | | | | + + + +---------+--------+ + | Multiple | Take 1 tablet by | | 0 | | | | Vitamins-Minerals | mouth Daily. | | | | 0 | | (MULTIVITAMIN PO) | | | | | | + + + +---------+--------+ + | traMADol (ULTRAM) | Take 50 mg by mouth | | 0 | | | | 50 mg tablet | nightly as needed. | | | | 9 | + + + +---------+--------+ + documented as of this encounter H&P Notes Gulshan Cifuentes MD - 09/13/2014 10:10 AM PST PRE-ENDOSCOPY HISTORY AND PRE-SEDATION ASSESSMENT PATIENT NAME: Luisa Watkins : 1960 TODAY'S DATE: 09/14/2014 PLANNED PROCEDURE: colonoscopy PERTINENT HISTORY/INDICATION FOR PROCEDURE: Luisa Watkins is a 54 y.o. female who is u ndergoing colonoscopy for colon cancer screening. Patient has family history of colon cance r in her brother at age 54. PAST HISTORY: Past Medical History Diagnosis Date Multiple sclerosis (HCC) January 2000 Polycystic ovaries May 1991 Hirsutism May 1991 Varicose veins February 2001 PAST SURGICAL HISTORY Past Surgical History Procedure Date Ablation of dysrhythmic focus 04.30.12 Ablate Heart Dysrhythm focus Laparoscopy 11.22.10 remove right adnexa Excision of right lower quadrant subcutaneous mass/injection reaction 11.22.10 Bladder suspension 07.31.08 for SHIVA Rectocele repair 07.31.08 Hysterectomy 07.31.08 [facility] Bilateral salpingectomy Cholecystectomy, laparoscopic Varicose vein surgery right groin Breast reduction surgery 1983 Tonsillectomy 1971 Rt ovary HOME MEDS: Prior to Admission medications Medication Sig Taking? armodafinil (NUVIGIL) 150 mg tablet Take 150 mg by mouth Daily as needed. cholecalciferol (VITAMIN D-3) 1,000 units capsule Take 5,000 Units by mouth Daily. estradiol (VIVELLE-DOT) 0.0375 MG/24HR Place 1 patch onto the skin Twice a week. interferon beta-1a (REBIF) 44 MCG/0.5ML injection Inject 44 mcg under the skin Three times a week. metoprolol succinate (TOPROL-XL) 50 mg 24 hr tablet Take 50 mg by mouth Daily. Multiple Vitamins-Minerals (MULTIVITAMIN PO) Take 1 tablet by mouth Daily. sodium sulfate-potassium sulfate-magnesium sulfate (SUPREP BOWEL PREP) oral solution Take 1 st dose at 4PM And 2nd dose at 8PM. The day prior to procedure traMADol (ULTRAM) 50 mg tablet Take 50 mg by mouth nightly as needed. ALLERGIES Allergies Allergen Reactions Clindamycin Other (See Comments) colitis Codeine Nausea Only ASA CLASSIFICATION 2 EXAMINATION: Blood pressure 133/82, pulse 88, temperature 37 C (98.6 F), temperature source Tympanic , resp. rate 16, height 1.626 m (5' 4"), weight 74.5 kg (164 lb 3.9 oz), SpO2 97.00%. General: Alert and orientedx3 Throat: Normal Lungs: Clear Heart: Regular rate and rhythm with out significant murmur Abdomen: flat, normal bowel sounds. Soft, nontender 1. Available medical records have been reviewed. 08/16 with laboratory she questionna jenae 2. Medication list reviewed. IMPRESSION: Colon cancer screening in an individual with a history of colon cancer in a f irst degree relative Patient appropriate for procedure. PLAN: 1. Proceed with procedure as stated above with moderate sedation/analgesia 2. Procedure, indications, risks and alternatives explained to patient/family and they agre ed to proceed and consent was signed. 3. Patient will be reevaluated immediately (1-2 minutes) before sedation administration and approved for the plan as stated above. Electronically Signed by: Gulshan Cifuentes MD 09/14/2014 [facility] Portions of this chart may have been created with [employer] voice recognition software. Occasi onal wrong-word or sound-alike substitutions may have occurred due to the inherent nieto itations of voice recognition software. Please read the chart carefully and recognize, using context, where these substitutions have occurred documented in this en counter Procedure Notes [facility] SCAN [facility] - 09/14/2014 12:00 AM PSTAssociated Order(s): COLONOSCOPYElectronically si gned by Ho Warren at 09/14/2014 8:45 AM PSTdocumented in this encounter Miscellaneous Notes Plan of Care - ONBASE SCAN [facility] - 09/15/2014 12:00 AM PST lan of Care - ONBASE SCAN [facility] - 09/15/2014 12:00 AM PSTElect ronically signed by Ho Warren at 09/15/2014 5:46 PM PSTMiscellaneous - ONBASE SCAN [facility] - 09/15/2014 12:00 AM PST ed ation Documentation - Keara Aaron RN - 09/14/2014 8:37 AM PSTNO COLONIC ABNORMALITI ES SEEN edation Doc umentation Keara Cardona RN - 09/14/2014 8:20 AM PSTIV SITE IN RIGHT HAND NOT RUNNI NG, FLUSHED WITHOUT POSITIVE RESULTS / RESTARTED TO LAC-22 JELCO iscellaneous - LOHIMA LORY OCONNELL - 09/14/2014 1 2:00 AM PST documented in thi s encounter Plan of Treatment +--------+---------+ + + + | Date | Type | Specialty | Care Team | Description | +--------+---------+ + + + | 12/25/ | Office | Neurology | Sesar Hernandez, | | | 2020 | Visit | | YASMINE [facility] | | | | | | [address] | | | | | | [place] [address] | | | | | | [phone] | | | | | | | | +--------+---------+ + + + | 01/16/ | Office | Cardiology | Tiffany Jonas, | | | 2020 | Visit | | MD [place] | | | | | | [place] | | | | | | [id number] | | | | | | | | +--------+---------+ + + + documented as of this encounter Procedures + +--------+ + + + | Procedure Name | Priori | Date/Time | Associated Diagnosis | Comments | | | ty | | | | + +--------+ + + + | COLONOSCOPY | | 09/14/2014 | Special screening | | | | | 8:00 AM | for malignant | | | | | PST | neoplasms, colon | | + +--------+ + + + | COLONOSCOPY | Routin | 09/14/2014 | | Results for this | | | e | 7:40 AM | | procedure are in the | | | | PST | | results section. | + +--------+ + + + documented in this encounter Results COLONOSCOPY (09/14/2014 7:40 AM PST) + + | Specimen | + + | | + + + + -+ | Narrative | Performed At | + + -+ | | [facility] | | GastroenterologyPatient Name: Luisa WatkinsProcedure Date: 09/14/2014 | [facility] | | 7:40 AMMRN: [id number] #: [id number] of : | | | 1960dmit Type: AmbulatoryAge: 54Room: [facility] 01Gender: FemaleNote | | | Status: FinalizedAttending MD: Gulshan Cifuentes, [facility]rocedure: | | | ColonoscopyIndications: Screening in patient at increased | | | risk: Colorectal cancer in brother before | | | age 60Providers: Gulshan Cifuentes MD, Keara Aaron RN, | | | Cari Krueger, TechnicianReferring MD: | | | Derek Garcia DO (Referring ), Apple Pérez MD | | | (Referring )Medicines: Midazolam 3 mg | | | IV, Meperidine 100 mg IV, Oxygen 4 | | | liters/min nasocannulaComplications: No immediate complications. | | | Estimated blood loss: None.Procedure: Pre-Anesthesia | | | Assessment: - Prior to the procedure, a History and Physical was | | | performed, and patient medications, allergies and | | | sensitivities were reviewed. The patient's tolerance of | | | previous anesthesia was reviewed. - Prior to the procedure, a | | | History and Physical was performed, and patient medications and | | | allergies were reviewed. The patient is competent. The risks | | | and benefits of the procedure and the sedation options and | | | risks were discussed with the patient. All questions were | | | answered and informed consent was obtained. Patient identification and | | | proposed procedure were verified by the physician, the nurse | | | and the telecommunications field technician in the endoscopy suite. Mental Status | | | Examination: normal. Airway Examination: normal oropharyngeal | | | airway and neck mobility and Mallampati Class II (the uvula but | | | not tonsillar pillars visualized). Respiratory Examination: | | | clear to auscultation. CV Examination: normal. Prophylactic | | | Antibiotics: The patient does not require prophylactic | | | antibiotics. Prior Anticoagulants: The patient has taken no previous | | | anticoagulant or antiplatelet agents. ASA Grade Assessment: II - | | | A patient with mild systemic disease. After reviewing the | | | risks and benefits, the patient was deemed in satisfactory | | | condition to undergo the procedure. The anesthesia plan was to | | | use moderate sedation / analgesia (conscious sedation). | | | Immediately prior to administration of medications, the patient | | | was re-assessed for adequacy to receive sedatives. The heart | | | rate, respiratory rate, oxygen saturations, blood pressure, | | | adequacy of pulmonary ventilation, and response to care were | | | monitored throughout the procedure. The physical status of the patient | | | was re-assessed after the procedure. - After reviewing | | | the risks and benefits, the patient was deemed in satisfactory | | | condition to undergo the procedure. - Immediately prior to | | | administration of medications, the patient was re-assessed for | | | adequacy to receive sedatives. - The heart rate, respiratory | | | rate, oxygen saturations, blood pressure, adequacy of pulmonary | | | ventilation, and response to care were monitored throughout | | | the procedure. - The physical status of the patient was | | | re-assessed after the procedure. After I obtained informed | | | consent, the scope was passed under direct vision. Throughout | | | the procedure, the patient's blood pressure, pulse, and oxygen | | | saturations were monitored continuously. The endoscope was | | | introduced through the anus and advanced to the cecum, identified by | | | the appendiceal orifice, ileocecal valve and palpation. The | | | colonoscopy was somewhat difficult due to a tortuous colon. | | | Successful completion of the procedure was aided by using | | | manual pressure, straightening and shortening the scope to | | | obtain bowel loop reduction and using scope torsion. The | | | quality of the bowel preparation was good.Findings: The perianal | | | and digital rectal examinations were normal. Pertinent | | | negatives include normal sphincter tone and no palpable rectal | | | lesions. The sigmoid colon and descending colon were moderately | | | tortuous. The descending colon and transverse colon were | | | moderately redundant. The exam was otherwise without | | | abnormality. The retroflexed view of the distal rectum and anal | | | verge was normal and showed no anal or rectal | | | abnormalities.Impression: - Tortuous colon. - Redundant | | | colon. - The examination was otherwise normal. - The | | | distal rectum and anal verge are normal on retroflexion | | | view.Recommendation: - Discharge patient to home (ambulatory). | | | - Return to previous diet today. - Continue present | | | medications. - Repeat colonoscopy in 5 years for screening | | | purposes. - Return to primary care physician as previously | | | scheduled. - Telephone GI clinic if symptomatic.Gulshan Cifuentes | | | 09/14/2014 8:42 AMThis report has been signed electronically.Number | | | of Addenda: 0Note Initiated On: 09/14/2014 7:40 AMScope Withdrawal | | | Time: 0 hours 6 minutes 51 seconds Total Procedure Duration: 0 hours | | | 10 minutes 14 seconds Scope In: 8:25:22 AMScope Out: 8:35:36 AM | | | [facility], [address], [place] | | | [address] | | | - Return to previous diet today. | | | - Continue present medications. | | | - Repeat colonoscopy in 5 years for screening purposes. | | | - Return to primary care physician as previously scheduled. | | | - Telephone GI clinic if symptomatic. | | |Gulshan Cifuentes MD | | |09/14/2014 8:42 AM | | |This report has been signed electronically. | | |Number of Addenda: 0 | | |Note Initiated On: 09/14/2014 7:40 AM | | |Scope Withdrawal Time: 0 hours 6 minutes 51 seconds | | |Total Procedure Duration: 0 hours 10 minutes 14 seconds | | |Scope In: 8:25:22 AM | | |Scope Out: 8:35:36 AM | | | [facility], [address], [place] | | | [address] | | + + -+ + + | Transcriptions | + + | Zay Warrenpa - 09/14/2014 12:00 AM PST | + + + +---------+ + + | Performing | Address | City/State/Zipcode | Phone Number | | Organization | | | | + +---------+ + + | [facility] | | | | + +---------+ + + documented in this encounter Visit Diagnoses + + | Diagnosis | + + | Special screening for malignant neoplasms, colon | + + documented in this encounter Administered Medications + +--------+ +--------+------+------+ | Medication Order | MAR | Action | Dose | Rate | Site | | | Action | Date | | | | + +--------+ +--------+------+------+ | meperidine (DEMEROL) 100 mg/mL | Given | 09/14/20 | 100 mg | | | | injection PRN, Pain, Starting | | 14 8:21 | | | | | [place] 09/14/14 at 0821 | | AM PST | | | | + +--------+ +--------+------+------+ +---+---+ | | | +---+---+ + +-------+ +------+---+---+ | midazolam (VERSED) 5 mg/mL | Given | 09/14/20 | 1 mg | | | | injection PRN, Anxiety, Starting | | 14 8:27 | | | | | [place] 09/14/14 at 0824 | | AM PST | | | | + +-------+ +------+---+---+ +-------+ +------+---+---+ | Given | 09/14/20 | 2 mg | | | | | 14 8:24 | | | | | | AM PST | | | | +-------+ +------+---+---+ +---+---+ | | | +---+---+ documented in this encounter
--- OUTSIDE RECORDS SUMMARY | ~2020-07-04 | XMS | Encounter Summary ---
Demographics + + + | Address | [address] | | | [place] [address] | + + + | Home Phone | | + + + | Preferred Language | Unknown | + + + | Marital Status | | + + + | Lutheran Affiliation | 1076 | + + + | Race | White | + + + | Ethnic Group | Not or | + + + Author + + + | Author | [facility] | | | and [place] | + + + | Organization | [facility] | | [...] [place] | | | | | [address] | | + + + + + | Dawit Kiser | ECON | Unknown | | + + + + + Care Team Providers + +------+ + | Care Material Attendant Name | Role | Phone | + +------+ + | Derek Richards DO | PCP | | + +------+ + Reason for Visit +--------+--------+ + | Reason | Onset | Comments | | | Date | | +--------+--------+ + | Other | 10/19/ | medication refill | | | 2018 | | +--------+--------+ + Encounter Details +--------+ + + + + | Date | Type | Department | Care Team | Description | +--------+ + + + + | 10/19/ | Telephone | [facility] | Molly Wesley, | Other (medication | | 2018 | | NEUROLOGY [address] | [address] C[address]TER | refill) | | | | [address] | | | | | | [place], [place] | | | | | | [address] | | | | | | [phone] | | | +--------+ + + + [...] Telephone Encounter - Molly Wesley CMA - 10/19/2019 9:10 AM PSTCalled patient and left detailed message to inform her that prescription for Tramadol has been approved and faxed to [facility]. Tdocumented in this encounter Plan of Treatment +--------+---------+ + + + | Date | Type | Specialty | Care Team | Description | +--------+---------+ + + + | 12/25/ | Office | Neurology | Sesar Hernandez, | | | 2020 | Visit | | [address] | | | | | | [address] | | | | | | [place] [address] | | | | | | [phone] | | | | | | | | +--------+---------+ + + + | 01/16/ | Office | Cardiology | Tiffany Jonas, | | | 2020 | Visit | | MD [address] | | | | | | [place] | | | | | | [phone] | | | | | | | | +--------+---------+ + + + documented as of this encounter Visit Diagnoses Not on filedocumented in this encounter"
--- OUTSIDE RECORDS SUMMARY | ~2020-07-04 | XMS | Encounter Summary ---
Demographics + + + | Address | [address] | | | [place] [address] | + + + | Home Phone | | + + + | Preferred Language | Unknown | + + + | Marital Status | | + + + | Voodoo Affiliation | 1076 | + + + | Race | White | + + + | Ethnic Group | Not or | + + + Author + + + | Author | [facility] | | | and [place] | + + + | Organization | [facility] | | | [...] [place] | | | | | [address] | | + + + + + | Dawit Kiser | ECON | Unknown | | + + + + + Care Team Providers + +------+ + | Care Vp Lab Name | Role | Phone | + +------+ + | Derek Richards DO | PCP | | + +------+ + Encounter Details +--------+ + + + + | Date | Type | Department | Care Team | Description | +--------+ + + + + | 04/21/ | Orders Only | [facility] | Sesar Hernandez, | | | 2017 | | [address] | [address] | | | | | [place], [place] | [address] | | | | | [address] | [place] [address] | | | | | [phone] | [phone] | | | | | | | | +--------+ + + + [...] | | | | | | [place] [address] | | | | | | [phone] | | | | | | | | +--------+---------+ + + + | 01/16/ | Office | Cardiology | Tiffany Jonas, | | | 2020 | Visit | | [address] | | | | | | [place] | | | | | | [address] | | | | | | | | +--------+---------+ + + + documented as of this encounter Procedures + +--------+ + + + | Procedure Name | Priori | Date/Time | Associated Diagnosis | Comments | | | ty | | | | + +--------+ + + + | VITAMIN D, | Routin | 04/21/2017 | | Results for this | | DEFICIENCY SCREEN | e | 11:59 AM | | procedure are in the | | (25-HYDROXY) | | PDT | | results section. | + +--------+ + + + | HEPATIC FUNCTION | Routin | 04/21/2017 | | Results for this | | PANEL | e | 11:59 AM | | procedure are in the | | | | PDT | | results section. | + +--------+ + + + documented in this encounter Results Vitamin D, Deficiency Screen (25-Hydroxy) (04/21/2017 11:59 AM PDT) + + + + + + | Component | Value | Ref Range | Performed | Pathologist | | | | | At | Signature | + + + + + + | Vit D, | 36Comment: <20 ng/mL | 30 - 150 ng/mL | EXTERNAL | | | 25-Hydroxy | Suggests deficiency | | LAB | | | | of 25-OH Vitamin D. | | | | | | 20-29 ng/mL | | | | | | Suggests a relative | | | | | | insufficiency of 25-OH | | | | | | Vitamin D. 30-150 ng/mL | | | | | | Suggests a sufficient | | | | | | level of 25-OH Vitamin | | | | | | D. >150 ng/mL | | | | | | Toxic level of 25-OH | | | | | | Vitamin D. Blood levels | | | | | | of 25 Hydroxy Vitamin D | | | | | | vary with the extent of | | | | | | sun exposure. Values | | | | | | tend to be highest in | | | | | | late summer and lowest | | | | | | in the spring. Values | | | | | | also tend to decrease | | | | | | with age, due to | | | | | | decreased precursor | | | | | | synthesis in the skin. | | | | + + + + + + + + | Specimen | + + | Blood specimen | | (specimen) | + + + +---------+ + + | Performing | Address | City/State/Zipcode | Phone Number | | Organization | | | | + +---------+ + + | EXTERNAL LAB | | | | + +---------+ + + Hepatic Function Panel (04/21/2017 11:59 AM PDT) + +-------+ + + + | Component | Value | Ref Range | Performed | Pathologist | | | | | At | Signature | + +-------+ + + + | Protein, | 7.3 | 6.3 - 8.2 g/dL | EXTERNAL | | | Total | | | LAB | | + +-------+ + + + | Albumin | 4.2 | 3.6 - 5.0 g/dL | EXTERNAL | | | | | | LAB | | + +-------+ + + + | Bilirubin | 0.5 | 0.1 - 1.5 mg/dL | EXTERNAL | | | Total | | | LAB | | + +-------+ + + + | Bilirubin | 0.1 | 0.0 - 0.3 mg/dL | EXTERNAL | | | Direct | | | LAB | | + +-------+ + + + | ALP, | 79 | 35 - 115 U/L | EXTERNAL | | | External | | | LAB | | + +-------+ + + + | AST | 28 | 10 - 45 U/L | EXTERNAL | | | | | | LAB | | + +-------+ + + + | ALT | 45 | 10 - 65 U/L | EXTERNAL | | | | | | LAB | | + +-------+ + + + + + | Specimen | + + | Blood specimen | | (specimen) | + + + +---------+ + + | Performing | Address | City/State/Zipcode | Phone Number | | Organization | | | | + +---------+ + + | EXTERNAL LAB | | | | + +---------+ + + documented in this encounter Visit Diagnoses Not on filedocumented in this encounter"
--- OUTSIDE RECORDS SUMMARY | ~2020-07-04 | XMS | Encounter Summary ---
Demographics + + + | Address | [address] | | | [place] [address] | + + + | Home Phone | | + + + | Preferred Language | Unknown | + + + | Marital Status | | + + + | Holiness Affiliation | 1076 | + + + | Race | White | + + + | Ethnic Group | Not or | + + + Author + + + | Author | [facility] | | | and [place] | + + + | Organization | [facility] | | | and [...] [place] | | | | | [address] | | + + + + + | Dawit Kiser | ECON | Unknown | | + + + + + Care Team Providers + +------+ + | Care Accounts Receivable Supervisor Name | Role | Phone | + +------+ + | Derek Richards DO | PCP | | + +------+ + Encounter Details +--------+ + + + + | Date | Type | Department | Care Team | Description | +--------+ + + + + | 09/04/ | Orders Only | [facility] | Roque Holloway Shaka | | | 2015 | | CARDIOLOGY MORIARTY | MD [address] | | | | | [address]UC [address] | [address] | | | | | [address] | [place] [address] | | | | | [place], [place] | [phone] | | | | | [address] | | | | | | [phone] | | | +--------+ + + + [...] [address] | | | | | | [address] | | | | | | [place] [address] | | | | | | [phone] | | | | | | | | +--------+---------+ + + + | 01/16/ | Office | Cardiology | Tiffany Jonas, | | | 2020 | Visit | | [address] | | | | | | [facility] [place] | | | | | | [address] | | | | | | | | +--------+---------+ + + + documented as of this encounter Procedures + +--------+ + + + | Procedure Name | Priori | Date/Time | Associated Diagnosis | Comments | | | ty | | | | + +--------+ + + + | STRESS ECG | Routin | 09/04/2015 | | Results for this | | | e | 1:50 PM | | procedure are in the | | | | PDT | | results section. | + +--------+ + + + documented in this encounter Results Stress ECG (09/04/2015 1:50 PM PDT) + + | Specimen | + + | | + + + + + | Impressions | Performed At | + + + | 1. Stress ECG negative for ischemia. 2. No exercise-induced | | | cardiac dysrhythmias observed. 3. Good exercise tolerance. 10 | | | METs achieved. 4. Remy Treadmill Score is 9 ( low risk). | | | | | + + + + + + | Narrative | Performed At | + + + | [facility] Treadmill Stress Test History: 55 | | | year old female being evaluated for hypertension, abnormal EKG | | | Rest Data: HR: 68 bpm BP: 115 / 77 Patient's predicted maximum HR: | | | 166 bpm Patient's predicted 85% maximum HR: 141 bpm Baseline ECG: | | | Normal sinus rhythm Stress Data: Exercise time: 09 : 00 METS: | | | 10.10 Peak HR: 150 bpm Peak BP: 159 / 78 RPP: 31354 Patient stopped | | | due to: bilateral leg fatigue Chest pain: none Stress ECG: no | | | ischemic ECG changes. Arrhythmias: none Procedure: Biju | | | protocol. | | + + + + + | Procedure Note | + + | Philippe Orozco Conversion - 07/01/2019 9:51 AM [facility] | | Treadmill Stress Test | | | | History: | | 55 year old female being evaluated for hypertension, abnormal EKG | | | | Rest Data: | | HR: 68 bpm BP: 115 / 77 | | Patient's predicted maximum HR: 166 bpm | | Patient's predicted 85% maximum HR: 141 bpm | | Baseline ECG: Normal sinus rhythm | | | | Stress Data: | | Exercise time: 09 : 00 METS: 10.10 | | Peak HR: 150 bpm Peak BP: 159 / 78 RPP: [id number] | | Patient stopped due to: bilateral leg fatigue | | Chest pain: none | | Stress ECG: no ischemic ECG changes. | | Arrhythmias: none | | | | Procedure: | | Biju protocol. | | | | IMPRESSION: | | 1. Stress ECG negative for ischemia. | | 2. No exercise-induced cardiac dysrhythmias observed. | | 3. Good exercise tolerance. 10 METs achieved. | | 4. Remy Treadmill Score is 9 ( low risk). | | | | | + + documented in this encounter Visit Diagnoses Not on filedocumented in this encounter"
--- OUTSIDE RECORDS SUMMARY | ~2020-07-04 | XMS | Encounter Summary ---
Demographics + + + | Address | [address] | | | [place] [address] | + + + | Home Phone | | + + + | Preferred Language | Unknown | + + + | Marital Status | | + + + | Faith Affiliation | 1076 | + + + | Race | White | + + + | Ethnic Group | Not or | + + + Author + + + | Author | [facility] | | | and [place] | + + + | Organization | [facility] | | | [...] [place] | | | | | [address] | | + + + + + | Dawit Kiser | ECON | Unknown | | + + + + + Care Team Providers + +------+ + | Care Wash Crew Person Name | Role | Phone | + +------+ + PCP | Unavailable | + +------+ + Encounter Details +--------+ + + + + | Date | Type | Department | Care Team | Description | +--------+ + + + + | 04/28/ | Hospital | [facility] | Bita Desir MD | OBSERVATN SUSPECT | | 2002 | Encounter | [address] | [address] [place] | [address] OTHER,SPEC | | | | [address] | [address] [place], [place] | | | | | [place], [place] | [address] | | | | | [address] | | | | | | [phone] | | | +--------+ + + + + Social History + +-------+ +--------+------+ | Tobacco Use | Types | Packs/Day | Years | Date | | | | | Used | | + +-------+ +--------+------+ | Never Assessed | | | | | + +-------+ +--------+------+ + + + | Sex Assigned at [...] | | | | | | [place] [address] | | | | | | [phone] | | | | | | | | +--------+---------+ + + + | 01/16/ | Office | Cardiology | Tiffany Jonas, | | | 2020 | Visit | | [address] | | | | | | [place] [facility] [place] | | | | | | [address] | | | | | | | | +--------+---------+ + + + documented as of this encounter Visit Diagnoses + + | Diagnosis | + + | Observation for other specified suspected conditions | + + documented in this encounter"
--- OUTSIDE RECORDS SUMMARY | ~2020-07-04 | XMS | Encounter Summary ---
Demographics + + + | Address | [address] | | | [place] [address] | + + + | Home Phone | | + + + | Preferred Language | Unknown | + + + | Marital Status | | + + + | Sikh Affiliation | 1076 | + + + | Race | White | + + + | Ethnic Group | Not or | + + + Author + + + | Author | [facility] | | | and [place] | + + + | Organization | [facility] | | | [...] [place] | | | | | [address] | | + + + + + | Dawit Kiser | ECON | Unknown | | + + + + + Care Team Providers + +------+ + | Care Road Supervisor Name | Role | Phone | + +------+ + | Derek Richards DO | PCP | | + +------+ + Reason for Visit + + + | Reason | Comments | + + + | Medication Refill | | + + + Encounter Details +--------+--------+ + + + | Date | Type | Department | Care Team | Description | +--------+--------+ + + + | 05/31/ | Refill | [facility] | Sesar Hernandez, | Medication Refill | | 2020 | | NEUROLOGY [address] | [address] | | | | | [address] | [facility] | | | | | [place], [place] | [place] [address] | | | | | [address] | [phone] | | | | | [phone] | | | +--------+--------+ + + + [...] this encounter Miscellaneous Notes Telephone Encounter - Padma Alvarado Medical Assistant - 05/31/2020 8:17 AM PDTLast Refill:10/18/19 Refill Qty:3 Last Visit:11/29/19 Next Appt:06/19/20 Called patient: no Please sign if appropriate. do cumented in this encounter Plan of Treatment +--------+---------+ + + + | Date | Type | Specialty | Care Team | Description | +--------+---------+ + + + | 12/25/ | Office | Neurology | Sesar Hernandez, | | | 2020 | Visit | | [address] | | | | | | [place] | | | | | | [place] [address] | | | | | | [phone] | | | | | | | | +--------+---------+ + + + | 01/16/ | Office | Cardiology | Tiffany Jonas, | | | 2020 | Visit | | [address] | | | | | | [place] | | | | | | [phone] | | | | | | | | +--------+---------+ + + + documented as of this encounter Visit Diagnoses Not on filedocumented in this encounter"
--- OUTSIDE RECORDS SUMMARY | ~2020-07-04 | XMS | Encounter Summary ---
Demographics + + + | Address | [address] | | | [place] [address] | + + + | Home Phone | | + + + | Preferred Language | Unknown | + + + | Marital Status | | + + + | Jewish Affiliation | 1076 | + + + | Race | White | + + + | Ethnic Group | Not or | + + + Author + + + | Author | [facility] | | | and [place] | + + + | Organization | [facility] | | [...] [place] | | | | | [address] | | + + + + + | Dawit Kiser | ECON | Unknown | | + + + + + Care Team Providers + +------+ + | Care Mine Patrol Name | Role | Phone | + +------+ + | Derek Richards DO | PCP | | + +------+ + Encounter Details +--------+ + + + + | Date | Type | Department | Care Team | Description | +--------+ + + + + | 10/02/ | Hospital | [facility] | Conversion | Diagnosis unknown | | 2015 | Encounter | [address] | Transaction, | | | | | [address] | Provider Unknown | | | | | [place] | [phone] | | | | | [address] | | | | | | [phone] | | | +--------+ + + + [...] +---------+--------+ + documented as of this encounter Plan of Treatment +--------+---------+ + + + | Date | Type | Specialty | Care Team | Description | +--------+---------+ + + + | 12/25/ | Office | Neurology | Sesar Hernandez, | | | 2020 | Visit | | [address] | | | | | | [address] | | | | | | [place] [address] | | | | | | [phone] | | | | | | | | +--------+---------+ + + + | 01/16/ | Office | Cardiology | Tiffany Jonas, | | | 2020 | Visit | | MD [address] | | | | | | [place] | | | | | | [address] | | | | | | | | +--------+---------+ + + + documented as of this encounter Procedures + +--------+ + + + | Procedure Name | Priori | Date/Time | Associated Diagnosis | Comments | | | ty | | | | + +--------+ + + + | MRI BRAIN W WO | Routin | 09/11/2015 | | Results for this | | CONTRAST | e | 1:19 PM | | procedure are in the | | | | PST | | results section. | + +--------+ + + + documented in this encounter Results MRI Brain w wo Contrast (09/11/2015 1:19 PM PST) + + | Specimen | + + | | + + + + + | Narrative | Performed At | + + + | This is a non-reportable procedure without a radiologist report and | | | is used for image storage only | | + + + + + | Procedure Note | + + | Philippe Orozco Conversion - 06/24/2019 2:27 AM PDT This is a non-reportable procedure | | without a radiologist report and isused for image storage only | + + documented in this encounter Visit Diagnoses + + | Diagnosis | + + | Diagnosis unknown Other unknown and unspecified cause of morbidity or mortality | + + documented in this encounter"
--- OUTSIDE RECORDS SUMMARY | ~2020-07-04 | XMS | Encounter Summary ---
Demographics + + + | Address | [address] | | | [place] [address] | + + + | Home Phone | | + + + | Preferred Language | Unknown | + + + | Marital Status | | + + + | Pentecostal Affiliation | 1076 | + + + | Race | White | + + + | Ethnic Group | Not or | + + + Author + + + | Author | [facility] | | | and [place] | + + + | Organization | [facility] | | | [...] [place] | | | | | [address] | | + + + + + | Dawit Kiser | ECON | Unknown | | + + + + + Care Team Providers + +------+ + | Care Door To Door Sales Representative Name | Role | Phone | + +------+ + | Derek Richards DO | PCP | | + +------+ + Encounter Details +--------+ + + + + | Date | Type | Department | Care Team | Description | +--------+ + + + + | 04/19/ | Hospital | [facility] | Conversion | Pain | | 2018 | Encounter | [address] | Transaction, | | | | | [address] | Provider Unknown | | | | | [place], [place] | [phone] | | | | | [address] | | | | | | [phone] | | | +--------+ + + + [...] | | | | | [place] [address] | | | | | | [phone] | | | | | | | | +--------+---------+ + + + | 01/16/ | Office | Cardiology | Tiffany Jonas, | | | 2020 | Visit | | MD [address] | | | | | | [facility] [facility] [place] | | | | | | [address] | | | | | | | | +--------+---------+ + + + documented as of this encounter Procedures + +--------+ + + + | Procedure Name | Priori | Date/Time | Associated Diagnosis | Comments | | | ty | | | | + +--------+ + + + | MRI CERVICAL SPINE W | Routin | 04/09/2018 | | Results for this | | WO CONTRAST | e | 11:52 PM | | procedure are in the | | | | PDT | | results section. | + +--------+ + + + documented in this encounter Results MRI Cervical Spine w wo Contrast (04/09/2018 11:52 PM PDT) + + | Specimen | + + | | + + + + + | Narrative | Performed At | + + + | This is a non-reportable procedure without a radiologist report and | | | is used for image storage only | | + + + + + | Procedure Note | + + | Philippe Orozco Carl - 06/22/2019 1:29 AM PDT This is a non-reportable procedure | | without a radiologist report and isused for image storage only | + + documented in this encounter Visit Diagnoses + + | Diagnosis | + + | Pain Generalized pain | + + documented in this encounter"
--- OUTSIDE RECORDS SUMMARY | ~2020-07-04 | XMS | Encounter Summary ---
Demographics + + + | Address | [address] | | | [place] [address] | + + + | Home Phone | | + + + | Preferred Language | Unknown | + + + | Marital Status | | + + + | Buddhism Affiliation | 1076 | + + + | Race | White | + + + | Ethnic Group | Not or | + + + Author + + + | Author | [facility] | | | and [place] | + + + | Organization | [facility] | | | [...] [place] | | | | | [address] | | + + + + + | Dawit Kiser | ECON | Unknown | | + + + + + Care Team Providers + +------+ + | Care Manifest Clerk Name | Role | Phone | + +------+ + | Derek Richards DO | PCP | | + +------+ + Reason for Visit + + + | Reason | Comments | + + + | Follow-up | Medication monitoring encounter | + + + Evaluate & Treat [...] | | | [place] | [place] | [address] | | | | | | [address] | Phone: | | | | | | Phone: | [phone] | | | | | | [phone] | Fax: | | | | | | Fax: | [phone] | | | | | | [phone] | | + +--------+ + + + + Encounter Details +--------+---------+ + + + | Date | Type | Department | Care Team | Description | +--------+---------+ + + + | 06/19/ | Office | [facility] | Sesar Hernandez, | Multiple sclerosis | | 2020 | Visit | NEUROLOGY [address] | [address] | ([facility]) (Primary Dx) | | | | [address] | [address] | | | | | [place], [place] | [place] [address] | | | | | [address] | [phone] | | | | | [phone] | | | +--------+---------+ + + + [...] encounter Progress Notes Sesar Hernandez PA-C - 06/19/2020 11:15 AM PDTFormatting of this note might be different fro m the original. Subjective: Patient ID: Luisa Watkins is a 59 y.o. female. HPI The patient returns today for follow up visit. She has relapsing-remitting multiple sclerosis. Interval history: She denies any new symptoms or changes. She admits occasional numbness of toe or toes, may last days or weeks and then resolve. Back pain is stable, benefit with tramadol. 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 She takes short nap after work most days which helps for managing fatigue. She admits has ongoing stress and feels some mood difficulty. She feels overall more "nega tive person" over the last year. She has talked about it with her and possible cont ribute to when she has taken on more responsibility with her brother. Her brother is 70, has history of TBI and developing some dementia told by Dr. Jimenez. She assists him with his finances and taking him to appointments. He has difficulty keep up on his home. She didn't feel Wellbutrin was working, therefore she discontinued but admits she may not h ave taken enough dose or for long enough. In the past years ago the Wellbutrin was very helpful for her and no side effects. She developed tongue numbness/paresthesia started early March 2018. The symptoms progressed over a few days to involve whole tongue and whole left side of face. No preceding infectio n, trauma, or dental procedure. No facial weakness [...] of the brain and cervical spine at [facility] in [place] on 08/2012 with s table lesion burden in her brain, no enhancement. There was reported one new cervical cord lesion at C2 without enhancement, however according to her previous reports she has had cerv ical cord lesion at C2 since 1998. MRI brain [facility] 09/11/15 reported stable lesion burden without new [...] overall. No new o r enhancing lesions. MRI of the brain and cervical spine 04/09/2018 showed one new lesion left frontal area which doesn't correlate to new left facial and tongue numbness. No clear brainstem lesion. Other diagnostics: She was told that she [...] problem li st Review of Systems Constitutional: Negative for fatigue (managing well) and fever. HENT: Negative for rhinorrhea and sore throat. Eyes: Negative for visual disturbance. Respiratory: Negative for cough and shortness of breath. Cardiovascular: Negative for chest pain, palpitations and leg swelling. Gastrointestinal: Negative for diarrhea, nausea and vomiting. Musculoskeletal: Positive for back pain. Negative for gait problem. Skin: Negative for rash. Neurological: Negative for facial asymmetry, speech difficulty, weakness, light-headedness, numbness (none currently) and headaches. Psychiatric/Behavioral: Positive for dysphoric mood (admits stress). The patient is not ner vous/anxious. Objective: BP 152/90 | Pulse 77 | Ht 1.626 m (5' 4") | Wt 75.1 kg (165 lb 9.6 oz) | SpO2 100% | B NV 28.43 kg/m Neurologic Exam Mental Status Oriented to person, place, and time. Speech: speech is normal Level of consciousness: alert Cranial Nerves CN II Visual gorman full to confrontation. CN III, IV, Extraocular motions are normal. CN VII Facial expression full, symmetric. CN VIII Hearing: intact Motor Exam Strength Strength 5/5 except as noted. Gait, Coordination, and Reflexes Gait Gait: normal Physical Exam Eyes: Extraocular Movements: EOM normal. Neurological: Mental Status: She is oriented to person, place, and time. Gait: Gait is intact. Psychiatric: Speech: Speech normal. Assessment and Plan: 1) Relapsing-remitting type of [...] on her treatment for a few years. MRI of the brain and cervical spine 04/09/2018 showed one new lesion left frontal area. She prefers not to have frequent repeated MRI studies unless she has new symptoms/changes. Continue Rebif injections overall good compliance in last couple years since her MRI showed progression in 04/2018. Normal LFT and CBC, repeat every 6 months. Discussed option for trial of oral agent Aubagio. She prefers to continue Rebif at this ayaz e. 2) Chronic low back pain. Failed physical therapy. Encourage continue regular exercise/activity as tolerated. She takes once to twice daily tramadol with good benefit. 3)mood fluctuation. Re-try Wellbutrin 150 mg XR daily x 4 weeks, then 300 mg XR daily. Call in 6-8 weeks to report symptom update. Call sooner if any concerns or severe symptoms or side effects. Follow up 6 months or sooner if needed. documented in this en counter Plan of Treatment +--------+---------+ + + + | Date | Type | Specialty | Care Team | Description | +--------+---------+ + + + | 12/25/ | Office | Neurology | Sesar Hernandez, | | | 2020 | Visit | | [address] | | | | | | [address] | | | | | | [place] [address] | | | | | | [phone] | | | | | | | | +--------+---------+ + + + | 01/16/ | Office | Cardiology | Tiffany Jonas, | | | 2020 | Visit | | MD [address] | | | | | | [facility] [place] | | | | | | [address] | | | | | | | | +--------+---------+ + + + documented as of this encounter Visit Diagnoses + + | Diagnosis | + + | Multiple sclerosis (HCC) - Primary Multiple sclerosis | + + documented in this encounter
--- OUTSIDE RECORDS SUMMARY | ~2020-07-04 | XMS | Encounter Summary ---
Demographics + + + | Address | [address] | | | [place] [address] | + + + | Home Phone | | + + + | Preferred Language | Unknown | + + + | Marital Status | | + + + | Catholic Affiliation | 1076 | + + + | Race | White | + + + | Ethnic Group | Not or | + + + Author + + + | Author | [facility] | | | and [place] | + + + | Organization | [facility] | | [...] [place] | | | | | [address] | | + + + + + | Dawit Kiser | ECON | Unknown | | + + + + + Care Team Providers + +------+ + | Care Lip Of Shank Cutter Name | Role | Phone | + +------+ + | Derek Richards DO | PCP | | + +------+ + Encounter Details +--------+ + + + + | Date | Type | Department | Care Team | Description | +--------+ + + + + | 10/02/ | Hospital | [facility] | Conversion | Diagnosis unknown | | 2015 | Encounter | CONVERSION [address] | Transaction, | | | | | [address] | Provider Unknown | | | | | [place] | [phone] | | | | | [address] | | | | | | [phone] | | | +--------+ + + + [...] D | | | | | | [place] [address] | | | | | | [phone] | | | | | | | | +--------+---------+ + + + | 01/16/ | Office | Cardiology | Tiffany Jonas, | | | 2020 | Visit | | [address] | | | | | | [facility] [place] | | | | | | [address] | | | | | | | | +--------+---------+ + + + documented as of this encounter Procedures + +--------+ + + + | Procedure Name | Priori | Date/Time | Associated Diagnosis | Comments | | | ty | | | | + +--------+ + + + | MRI LUMBAR SPINE WO | Routin | 09/11/2015 | | Results for this | | CONTRAST | e | 1:21 PM | | procedure are in the | | | | PST | | results section. | + +--------+ + + + documented in this encounter Results MRI Lumbar Spine wo Contrast (09/11/2015 1:21 PM PST) + + | Specimen | [...]
--- OUTSIDE RECORDS SUMMARY | ~2020-07-04 | XMS | Encounter Summary ---
Demographics + + + | Address | [address] | | | [place] [address] | + + + | Home Phone | | + + + | Preferred Language | Unknown | + + + | Marital Status | | + + + | Yazidi Affiliation | 1076 | + + + [...] [place] | | | | | [address] | | + + + + + | Dawit Kiser | ECON | Unknown | | + + + + + Care Team Providers + +------+ + | Care Technical Services Manager Name | Role | Phone | + +------+ + | Derek Richards DO | PCP | | + +------+ + Reason for Visit + +--------+ + | Reason | Onset | Comments | | | Date | | + +--------+ + | Medication Refill | 10/18/ | | | | 2018 | | + +--------+ + Encounter Details +--------+--------+ + + + | Date | Type | Department | Care Team | Description | +--------+--------+ + + + | 10/18/ | Refill | [facility] | Sesar Hernandez, | Medication Refill | | 2019 | | NEUROLOGY [address] | [address] | | | | | [address] | [address] | | | | | [place], [place] | [place] [address] | | | | | [address] | [phone] | | | | | [phone] | | | +--------+--------+ + + + [...] Telephone Encounter - Molly Wesley CMA - 10/18/2019 1:58 PM PSTLast filled on: 03/28/19 Last office visit: 05/03/19 Next office visit: 11/29/19 documented in this en counter Plan of [...] | | | | | [place] [address] | | | | | | [phone] | | | | | | | | +--------+---------+ + + + | 01/16/ | Office | Cardiology | Tiffany Jonas, | | | 2020 | Visit | | [address] | | | | | | [place] | | | | | | [address] | | | | | | | | +--------+---------+ + + + documented as of this encounter Visit Diagnoses Not on filedocumented in this encounter"
--- OUTSIDE RECORDS SUMMARY | ~2020-07-04 | XMS | Encounter Summary ---
Demographics + + + | Address | [address] | | | [place] [address] | + + + | Home Phone | | + + + | Preferred Language | Unknown | + + + | Marital Status | | + + + | Baptist Affiliation | 1076 | + + + | Race | White | + + + | Ethnic Group | Not or | + + + Author + + + | Author | [facility] | | | and [place] | + + + | Organization | [facility] | | | [...] [place] | | | | | [address] | | + + + + + | Dawit Kiser | ECON | Unknown | | + + + + + Care Team Providers + +------+ + | Care Health Care Marketing Specialist Name | Role | Phone | + +------+ + | Derek Richards DO | PCP | | + +------+ + Reason for Visit + +--------+ + | Reason | Onset | Comments | | | Date | | + +--------+ + | Follow-up | 10/18/ | Reschedule | | | 2018 | | + +--------+ + Encounter Details +--------+ + + + + | Date | Type | Department | Care Team | Description | +--------+ + + + + | 10/18/ | Telephone | [facility] | Sesar Hernandez, | Follow-up | | 2018 | | NEUROLOGY [address] | PA-C [address] | (Reschedule ) | | | | [address] | [address] | | | | | [place], [place] | [place] [address] | | | | | [address] | [phone] | | | | | [phone] | | | +--------+ + + + [...] this encounter Miscellaneous Notes Telephone Encounter - Olivia Worley - 10/18/2019 1:35 PM PSTLuisa, is returning call for Follow-up (Reschedule ) and would like a call back. Additional Call Details: Returning call, requesting call back to her mobile number elephone Remigio Galvez Karate Teacher - 10/18/2019 10:17 AM PSTCalled patient and left voic e mail for her to call back.Electronically signed by Remigio Vazquez Karate Teacher at 10:17 AM PSTTelephone Encounter - Olivia Worley - 10/18/2019 9:25 AM PSTB cathy, is calling regarding Follow-up (Reschedule ) and would like a call back. Additional Call Details: Calling to reschedule appointment 10/25. Please call the mobile n umber listed If this is a symptom based call, was patient offered triage? Not Applicable If this is a symptom based call and you were unable to immediately transfer the call to a blessing mitchell pocket machine operator was caller made aware that if [...] | | | | | [place] [address] | | | | | | [phone] | | | | | | | | +--------+---------+ + + + | 01/16/ | Office | Cardiology | Tiffany Jonas, | | | 2020 | Visit | | MD [address] | | | | | | [place] | | | | | | [phone] | | | | | | | | +--------+---------+ + + + documented as of this encounter Visit Diagnoses Not on filedocumented in this encounter"
--- OUTSIDE RECORDS SUMMARY | ~2020-07-04 | XMS | Encounter Summary ---
Demographics + + + | Address | [address] | | | [place] [address] | + + + | Home Phone | | + + + | Preferred Language | Unknown | + + + | Marital Status | | + + + | Cheondoism Affiliation | 1076 | + + + | Race | White | + + + | Ethnic Group | Not or | + + + Author + + + | Author | [facility] | | | and [place] | + + + | Organization | [facility] | | | [...] [place] | | | | | [address] | | + + + + + | Dawit Kiser | ECON | Unknown | | + + + + + Care Team Providers + +------+ + | Care Grab Jack Man Name | Role | Phone | + +------+ + | Derek Richards DO | PCP | | + +------+ + Encounter Details +--------+ + + + + | Date | Type | Department | Care Team | Description | +--------+ + + + + | 03/30/ | Orders Only | [facility] | Sesar Hernandez, | | | 2018 | | [address] | [address] | | | | | [place], [place] | [address] | | | | | [address] | [place] [address] | | | | | [phone] | [phone] | | | | | | | [...] | | | | | | [place] [address] | | | | | | [phone] | | | | | | | | +--------+---------+ + + + | 01/16/ | Office | Cardiology | Tiffany Jonas, | | | 2020 | Visit | | [address] | | | | | | [place] | | | | | | [address] | | | | | | | | +--------+---------+ + + + documented as of this encounter Procedures + +--------+ + + + | Procedure Name | Priori | Date/Time | Associated Diagnosis | Comments | | | ty | | | | + +--------+ + + + | EXTERNAL LAB: CBC | Routin | 03/30/2018 | | Results for this | | | e | 12:13 PM | | procedure are in the | | | | PDT | | results section. | + +--------+ + + + | VITAMIN B-12 | Routin | 03/30/2018 | | Results for this | | | e | 12:13 PM | | procedure are in the | | | | PDT | | results section. | + +--------+ + + + | VITAMIN D, | Routin | 03/30/2018 | | Results for this | | DEFICIENCY SCREEN | e | 12:13 PM | | procedure are in the | | (25-HYDROXY) | | PDT | | results section. | + +--------+ + + + | TSH | Routin | 03/30/2018 | | Results for this | | | e | 12:13 PM | | procedure are in the | | | | PDT | | results section. | + +--------+ + + + | COMPREHENSIVE | Routin | 03/30/2018 | | Results for this | | METABOLIC PANEL | e | 12:13 PM | | procedure are in the | | | | PDT | | results section. | + +--------+ + + + documented in this encounter Results Vitamin D, Deficiency Screen (25-Hydroxy) (03/30/2018 12:13 PM PDT) + + + + + + | Component | Value | Ref Range | Performed | Pathologist | | | | | At | Signature | + + + + + + | Vit D, | 49Comment: <20 ng/mL | 30 - 150 ng/mL [...] | | | + +---------+ + + External Lab: CBC (03/30/2018 12:13 PM PDT) + + + + + + | Component | Value | Ref Range | Performed | Pathologist | | | | | At | Signature | + + + + + + | WBC | 6.11 | 3.80 - 11.00 | EXTERNAL | | | | | 10*3/uL | LAB | | + + + + + + | Non- | 4.79 | 3.70 - 5.10 | EXTERNAL | | | Red Blood | | 10*6/uL | LAB | | | Cells | | | | | | Counted | | | | | + + + + + + | Hemoglobin | 14.9 | 11.3 - 15.5 | EXTERNAL | | | | | g/dL | LAB | | + + + + + + | Hematocrit, | 43.1 | 34.0 - 46.0 % | EXTERNAL | | | POC | | | LAB | | + + + + + + | MCV | 89.9 | 80.0 - 100.0 fL | EXTERNAL | | | | | | LAB | | + + + + + + | MCH | 31.2 | 27.0 - 34.0 pg | EXTERNAL | | | | | | LAB | | + + + + + + | MCHC | 34.7 | 32.0 - 35.5 | EXTERNAL | | | | | g/dL | LAB | | + + + + + + | RDW-CV | 42.4 | 37 - 53 fL | EXTERNAL | | | | | | LAB | | + + + + + + | Platelet | 219 | 150 - 400 | EXTERNAL | | | Count | | 10*3/uL | LAB | | | Plasma | | | | | + + + + + + | MPV | 8.9 | fL | EXTERNAL | | | | | | LAB | | + + + + + + | Differentia | AUTOMATED | | EXTERNAL | | | l Type | | | LAB | | + + + + + + | % Segmented | 68.12 | % | EXTERNAL | | | | | | LAB | | | Neutrophils | | | | | + + + + + + | % | 20.30 | % | EXTERNAL | | | Lymphocytes | | | LAB | | + + + + + + | % Monocytes | 9.19 | % | EXTERNAL | | | | | | LAB | | + + + + + + | % | 1.60 | % | EXTERNAL | | | Eosinophils | | | LAB | | + + + + + + | % Basophils | 0.79 | % | EXTERNAL | | | | | | LAB | | + + + + + + | Absolute | 4.16 | 1.90 - 7.40 | EXTERNAL | | | Segmented | | 10*3/uL | LAB | | | Neutrophils | | | | | + + + + + + | Absolute | 1.24 | 1.00 - 3.90 | EXTERNAL | | | Lymphocytes | | 10*3/uL | LAB | | + + + + + + | Absolute | 0.56 | 0.00 - 0.80 | EXTERNAL | | | Monocytes | | 10*3/uL | LAB | | + + + + + + | Absolute | 0.10 | 0.00 - 0.50 | EXTERNAL | | | Eosinophils | | 10*3/uL | LAB | | + + + + + + | Absolute | 0.05 | 0.00 - 0.10 | EXTERNAL | | | Basophils | | 10*3/uL | LAB | | + + + + + + + + | Specimen | + + | Blood specimen | | (specimen) | + + + +---------+ + + | Performing | Address | City/State/Zipcode | Phone Number | | Organization | | | | + +---------+ + + | EXTERNAL LAB | | | | + +---------+ + + TSH (03/30/2018 12:13 PM PDT) + +-------+ + + + | Component | Value | Ref Range | Performed | Pathologist | | | | | At | Signature | + +-------+ + + + | TSH | 1.470 | 0.450 - 5.100 | EXTERNAL | | | | | u[iU]/mL | LAB | | + +-------+ + + + + + | Specimen | + + | Blood specimen | | (specimen) | + + + +---------+ + + | Performing | Address | City/State/Zipcode | Phone Number | | Organization | | | | + +---------+ + + | EXTERNAL LAB | | | | + +---------+ + + Vitamin B-12 (03/30/2018 12:13 PM PDT) + +-------+ + + + | Component | Value | Ref Range | Performed | Pathologist | | | | | At | Signature | + +-------+ + + + | VITAMIN | 422 | 254 - 1,320 | EXTERNAL | | | B-12 | | pg/mL | LAB | | + +-------+ + + + + + | Specimen | + + | Blood specimen | | (specimen) | + + + +---------+ + + | Performing | Address | City/State/Zipcode | Phone Number | | Organization | | | | + +---------+ + + | EXTERNAL LAB | | | | + +---------+ + + Comprehensive Metabolic Panel (03/30/2018 12:13 PM PDT) + + + + + + | Component | Value | Ref Range | Performed | Pathologist | | | | | At | Signature | + + + + + + | Na | 141 | 135 - 145 | EXTERNAL | | | | | mmol/L | LAB | | + + + + + + | K | 4.4 | 3.5 - 4.9 | EXTERNAL | | | | | mmol/L | LAB | | + + + + + + | Cl | 105 | 99 - 109 mmol/L | EXTERNAL | | | | | | LAB | | + + + + + + | CO2 | 31 | 23 - 32 mmol/L | EXTERNAL | | | | | | LAB | | + + + + + + | Anion Gap | 9 | 5 - 20 mmol/L | EXTERNAL | | | | | | LAB | | + + + + + + | Glucose, | 91 | 65 - 99 mg/dL | EXTERNAL | | | Fasting | | | LAB | | + + + + + + | BUN | 11 | 8 - 25 mg/dL | EXTERNAL | | | | | | LAB | | + + + + + + | Creatinine | 0.7 | 0.50 - 1.00 | EXTERNAL | | | | | mg/dL | LAB | | + + + + + + | BUN/Creatin | 16 | | EXTERNAL | | | ine Ratio | | | LAB | | + + + + + + | Calcium | 9.2 | 8.5 - 10.5 | EXTERNAL | | | | | mg/dL | LAB | | + + + + + + | Protein, | 7.2 | 6.3 - 8.2 g/dL | EXTERNAL | | | Total | | | LAB | | + + + + + + | Albumin | 4.2 | 3.6 - 5.0 g/dL | EXTERNAL | | | | | | LAB | | + + + + + + | Globulin | 3.0 | 1.3 - 4.9 g/dL | EXTERNAL | | | | | | LAB | | + + + + + + | A/G Ratio | 1.4 | 1.0 - 2.4 | EXTERNAL | | | | | | LAB | | + + + + + + | Bilirubin | 0.6 | 0.1 - 1.5 mg/dL | EXTERNAL | | | Total | | | LAB | | + + + + + + | ALP, | 68 | 35 - 115 U/L | EXTERNAL | | | External | | | LAB | | + + + + + + | AST | 18 | 10 - 45 U/L | EXTERNAL | | | | | | LAB | | + + + + + + | ALT | 29 | 10 - 65 U/L | EXTERNAL | | | | | | LAB | | + + + + + + | Estimated | >60Comment: GFR <60: | mL/min/1.73_m2 | EXTERNAL | | | GFR | CHRONIC KIDNEY DISEASE, | | LAB | | | | IF FOUND OVER A 3 MONTH | | | | | | PERIOD. GFR <15: KIDNEY | | | | | | FAILURE. FOR | | | | | | AMERICANS, MULTIPLY THE | | | | | | CALCULATED GFR BY 1.210. | | | | + + + [...]
--- OUTSIDE RECORDS SUMMARY | ~2020-07-04 | XMS | Encounter Summary ---
Demographics + + + | Address | [address] | | | [place] [address] | + + + | Home Phone | | + + + | Preferred Language | Unknown | + + + | Marital Status | | + + + | Sabianist Affiliation | 1076 | + + + | Race | White | + + + | Ethnic Group | Not or | + + + Author + + + | Author | [facility] | | | and [place] | + + + | Organization | [facility] | | | and [place] | + + + | Address | Unknown | + + + | Phone | Unavailable | + + + Support + + + + + | Name | Relationship | Address | Phone | + + + + + | Jose Watikns | ECON | [address] | | | | | [place] | | | | | [address] | | + + + + + | Dawit Kiser | ECON | Unknown | | + + + + + Care Team Providers + +------+ + | Care Jewelry Finisher Name | Role | Phone | + +------+ + | Derek Richards DO | PCP | | + +------+ + Reason for Visit + + + | Reason | Comments | + + + | Annual Exam | | + + + Encounter Details +--------+---------+ + + + | Date | Type | Department | Care Team | Description | +--------+---------+ + + + | 11/23/ | Office | [facility] | Tiffany Lind, | Atrioventricular | | 2020 | Visit | [place]ARDIOLOGY [place] | [address] | jessica re-entry | | | | [address] | [place], [place] | tachycardia (HCC) | | | | WAY [facility] [address] | [id number] | (Primary Dx); AVNRT | | | | [place], [place] | | (AV jessica re-entry | | | | [address] | | tachycardia) (HCC); | | | | [phone] | | Multiple sclerosis | | | | | | (HCC) | +--------+---------+ + + + Social History [...] + + + | Blood Pressure | 120/80 | 11/23/2019 3:29 PM | | | | | PST | | + + + + + | Pulse | 93 | 11/23/2019 3:29 PM | | | | | PST | | + + + + + | Temperature | - | - | | + + + + + | Respiratory Rate | - | - | | + + + + + | Oxygen Saturation | 95% | 11/23/2019 3:29 PM | | | | | PST | | + + + + + | Inhaled Oxygen | - | - | | | Concentration | | | | + + + + + | Weight | 76.2 kg (168 lb) | 11/23/2019 3:29 PM | | | | | PST | | + + + + + | Height | 162.6 cm (5' 4") | 11/23/2019 3:29 PM | | | | | PST | | + + + + + | Body Mass Index | 28.84 | 11/23/2019 3:29 PM | | | | | PST | | + + + + + documented in this encounter Progress Notes Tiffany Lind MD - 11/23/2019 3:00 PM PSTFormatting of this note might be different f rom the original. Date of visit: 11/23/2019 Primary Care Physician: Derek Richards DO CHIEF COMPLAINT: Chief Complaint Patient presents with Annual Exam HISTORY OF PRESENT ILLNESS: Luisa is 59 y.o. here for follow up visit. History of AVNRT ablation 2011. Denies any ches t pain or shortness breath. Started having episodes of frequent palpitation especially at night time. Last for less than a minute, no dizziness or syncopal episodes. Since hospitalization. Ran out of metoprolol succinate. Past medical history, SH, FH, and medications were reviewed in the chart. Medications: Outpatient Encounter Medications as of 11/23/2019 Medication Sig Dispense Refill armodafinil (NUVIGIL) 150 mg tablet Take 150 mg by mouth Daily as needed. buPROPion (WELLBUTRIN SR) 100 mg 12 hr tablet Start 1 tab by mouth once daily x 1 week, then take twice daily. cholecalciferol (VITAMIN D-3) 1,000 units capsule Take 5,000 Units by mouth Daily. estradiol (ESTRACE) 1 mg tablet TK 1 T PO QD 0 [DISCONTINUED] estradiol (VIVELLE-DOT) 0.025 MG/24HR Place 2 patches onto the skin once a week. [DISCONTINUED] estradiol (VIVELLE-DOT) 0.0375 MG/24HR Place 1 patch onto the skin Twice a week. Fexofenadine HCl (YESI PO) Take 30 mg by mouth daily. ibuprofen (ADVIL,MOTRIN) 100 MG tablet Take 100 mg by mouth as needed. interferon beta-1a (REBIF REBIDOSE) 44 mcg/0.5 mL injection Inject 44 mcg into the skin . [DISCONTINUED] interferon beta-1a (REBIF) 44 MCG/0.5ML injection Inject 44 mcg under th e skin Three times a week. Melatonin 10 MG TABS Take 10 mg by mouth nightly. metoprolol succinate (TOPROL-XL) 50 mg 24 hr tablet TAKE 1 TABLET NIGHTLY [DISCONTINUED] metoprolol succinate (TOPROL-XL) 50 mg 24 hr tablet Take 50 mg by mouth Daily. Multiple Vitamins-Minerals (MULTIVITAMIN PO) Take 1 tablet by mouth daily. [DISCONTINUED] Multiple Vitamins-Minerals (MULTIVITAMIN PO) Take 1 tablet by mouth Nat y. traMADol (ULTRAM) 50 mg tablet TAKE 1 TABLET BY MOUTH EVERY 6 HOURS NEEDED FOR PAIN 120 tablet 3 [DISCONTINUED] VITAMIN D, CHOLECALCIFEROL, PO Take 5,000 Units by mouth daily. No facility-administered encounter medications on file as of 11/23/2019. Allergies Allergies Allergen Reactions Clindamycin Other (See Comments) colitis antibiotic induced colitis Codeine Nausea Only and Rash REVIEW OF SYSTEMS: Constitutional: negative for fatigue. No fever, chills, and rigors. No report of weight ch chaitanya. HEENT: Negative for nosebleeds, ear discharge, nasal congestion or soar throat. Eyes: Negative for visual disturbance, redness, or secretion. Respiratory: Negative for cough, sputum production, hemoptysis, wheezing. Cardiovascular: as HPI. Gastrointestinal: Negative for nausea, vomiting, diarrhea, abdominal pain and blood in stoo l. Genitourinary: Negative for dysuria or hematuria. Musculoskeletal: arthritic pain. Skin: Negative for rash. Neurological: Negative for dizziness. No numbness. No recent falls. No slurred speech. Hematological: No significant bruising. Psychiatric/Behavioral: No depression or anxiety. PHYSICAL EXAM Vital Signs: BP 120/80 | Pulse 93 | Ht 1.626 m (5' 4") | Wt 76.2 kg (168 lb) | SpO2 95% | BMI 28.84 kg/m GENERAL APPEARANCE: Alert, oriented, cooperative, no distress, appears stated age. HEENT: Extraocular movements were intact. No jaundice. Pupiles round and reactive. NECK: No JVD, lymphadenopathy. Carotid upstrokes normal. No carotid bruit heard. CARDIAC: Regular rhythm and rate. There is normal S1 and S2. No galop. No murmur. CHEST: Normal bilateral symmetrical chest excursion.ackles or wheezing. No evidence of dull ness. ABDOMEN: Soft.No tenderness or guarding. No palpable organs. Active bowel sounds. EXTREMITIES: No lower extremities edema, cyanosis or clubbing. NEURO: Alert and oriented times three with no focal deficit. Cranial nerves are grossly no rmal. SKIN: Warm and dry. No rash. Psych: Normal affect and mood. DATA Lab Results Component Value Date/Time NA 141 03/30/2018 12:13 PM NA 137 01/10/2014 03:11 PM K 4.4 03/30/2018 12:13 PM K 3.9 01/10/2014 03:11 PM CO2 31 03/30/2018 12:13 PM CO2 28 01/10/2014 03:11 PM BUN 11 03/30/2018 12:13 PM BUN 12 01/10/2014 03:11 PM CALCIUM 9.2 03/30/2018 12:13 PM CALCIUM 9.9 01/10/2014 03:11 PM Lab Results Component Value Date/Time WBC 6.11 03/30/2018 12:13 PM WBC 6.73 10/20/2017 11:45 AM WBC 8.0 01/10/2014 03:11 PM HGB 14.9 03/30/2018 12:13 PM HGB 15.3 10/20/2017 11:45 AM HGB 15.1 01/10/2014 03:11 PM MCV 89.9 03/30/2018 12:13 PM MCV 89.7 10/20/2017 11:45 AM MCV 90.6 01/10/2014 03:11 PM LABPLAT 219 03/30/2018 12:13 PM LABPLAT 217 10/20/2017 11:45 AM LABPLAT 253 01/10/2014 03:11 PM Lab Results Component Value Date ALT 29 03/30/2018 ALT 32 10/20/2017 GLUF 91 03/30/2018 GLUF 99 01/10/2014 TSH 1.470 03/30/2018 EC11/23/2019 Ordered and reviewed myself showed normal sinus rhythm, left axis deviation. Last Echo: Last Stress Test, 09/04/2015: 9:00min Biju, ECG (-) for ischemia, no arrhythmias, low risk. 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 with 1. 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 No recurrent episodes. 2. Palpitation, likely Premature ventricular contractions according to patient's discriptio n. Recommendations: At this time will restart metoprolol succinate daily, 50 mg, may take 25 mg if side effect of fatigue or bradycardia. Consider event monitor if symptoms still persist. Follow up in one year or sooner if needed. *This report has been prepared using a voice recognition system. The report was reviewed fo r accuracy, however, sound-alike word errors, addition and/or deletions may occur. If there is any question about this report please contact me. Tiffany Lind MD, MPH documented in this encounter Plan of Treatment +--------+---------+ + + + | Date | Type | Specialty | Care Team | Description | +--------+---------+ + + + | 12/25/ | Office | Neurology | Sesar Hernandez, | | | 2020 | Visit | | YASMINE [address] | | | | | | [address] | | | | | | [place] [address] | | | | | | [phone] | | | | | | | | +--------+---------+ + + + | 01/16/ | Office | Cardiology | Tiffany Lind, | | | 2020 | Visit | | MD [address] | | | | | | [place] | | | | | | [address] | | | | | | | | +--------+---------+ + + + documented as of this encounter Procedures + +--------+ + + + | Procedure Name | Priori | Date/Time | Associated Diagnosis | Comments | | | ty | | | | + +--------+ + + + | ECG 12 LEAD | Routin | 11/23/2019 | Atrioventricular | Results for this | | | e | 3:35 PM | jessica re-entry | procedure are in the | | | | PST | tachycardia (HCC) | results section. | + +--------+ + + + documented in this encounter Results ECG 12 lead (11/23/2019 3:35 PM PST) + + + + + + | Component | Value | Ref Range | Performed | Pathologist | | | | | At | Signature | + + + + + + | VENTRICULAR | 88 | BPM | [facility] | | | RATE EKG | | | | | + + + + + + | ATRIAL RATE | 88 | BPM | [facility] | | + + + + + + | P-R | 170 | ms | [facility] | | | INTERVAL | | | | | + + + + + + | QRS | 90 | ms | [facility] | | | DURATION | | | | | + + + + + + | Q-T | 386 | ms | [facility] | | | INTERVAL | | | | | + + + + + + | Q-T | 467 | ms | [facility] | | | INTERVAL | | | | | | (CORRECTED) | | | | | + + + + + + | P WAVE AXIS | 67 | degrees | [facility] | | + + + + + + | QRS AXIS | -14 | degrees | [facility] | | + + + + + + | T AXIS | 42 | degrees | [facility] | | + + + + + + | INTERPRETAT | Normal sinus rhythmLeft | | [facility] | | | ION TEXT | axis deviationAbnormal | | | | | | ECGWhen compared with | | | | | | ECG of 11-NOV-2017 | | | | | | 15:05,No significant | | | | | | change was | | | | | | foundConfirmed by | | | | | | Tiffany Lind MD | | | | | | ([id number]) on 11/24/2019 | | | | | | 1:56:51 PM | | | | + + + + + + + + | Specimen | + + | | + + + + + | Narrative | Performed At | + + + | | | + + + + +---------+ + + | Performing | Address | City/State/Zipcode | Phone Number | | Organization | | | | + +---------+ + + | [facility] | | | | + +---------+ + + documented in this encounter Visit Diagnoses + + | Diagnosis | + + | 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
--- OUTSIDE RECORDS SUMMARY | ~2020-07-04 | XMS | Encounter Summary ---
Demographics + + + | Address | [address] | | | [place] [address] | + + + | Home Phone | | + + + | Preferred Language | Unknown | + + + | Marital Status | | + + + | Bahai Affiliation | 1076 | + + + | Race | White | + + + | Ethnic Group | Not or | + + + Author + + + | Author | [facility] | | | and [place] | + + + | Organization | [facility] | | [...] [place] | | | | | [address] | | + + + + + | Dawit Kiser | ECON | Unknown | | + + + + + Care Team Providers + +------+ + | Care Radar Technician Name | Role | Phone | + +------+ + | Derek Richards DO | PCP | | + +------+ + Encounter Details +--------+ + + + + | Date | Type | Department | Care Team | Description | +--------+ + + + + | 09/14/ | Hospital | [facility] | Gulshan Cifuentes MD | Screen for colon | | 2014 | Encounter | [facility] | [address] | cancer (Primary Dx) | | | | [address] | [address] | | | | | [place] | [id number] | | | | | [address] | | | | | | [phone] | | | +--------+ + + + [...] + documented in this encounter Discharge Instructions Instructions Pamela Garcia RN - 09/14/2014Formatting of this note might be diffe rent from the original. Colorectal Cancer Screening Colorectal cancer (cancer in the colon or rectum) is aleading cause of cancer deaths in [facility]. But it doesn t have to be. [...] medical history. Mention if a family me clif[place] has had colon cancer or polyps. Also mention any health problems you have had in the sd st. Digital rectal exam (VALERIA). During a [...] people. Then, the table will move into e machine and photos will be taken [...] Bleeding Fever over 101F (38.8C) Abdominal pain [id number] [facility], [address] [place] [address], [place] [address]. All rights reserve d. This information is [...] vein surgery right groin Breast reduction surgery 1984 Tonsillectomy 1971 Rt ovary HOME MEDS: Prior [...] Electronically Signed by: Gulshan Cifuentes MD 09/14/2014 [facility] Portions of this chart may have been created with [employer] voice recognition software. Occasi onal wrong-word or sound-alike substitutions may have occurred due to the inherent nieto itations of voice recognition software. Please read the chart carefully and recognize, using context, where these substitutions have occurred documented in this en counter Procedure Notes ONBASE SCAN [facility] - 09/14/2014 12:00 AM PSTAssociated Order(s): COLONOSCOPYElectronically si gned by Ho Warren at 09/14/2014 8:45 AM PSTdocumented in this encounter Miscellaneous Notes Plan of Care - ONBASE SCAN [facility] - 09/15/2014 12:00 AM PST lan of Care - ONBASE SCAN [facility] - 09/15/2014 12:00 AM PSTElect ronically signed by Ho Warren at 09/15/2014 5:46 PM PSTMiscellaneous - ONBASE SCAN [facility] - 09/15/2014 12:00 AM PST ed ation Documentation - Keara Aaron RN - 09/14/2014 8:37 AM PSTNO COLONIC ABNORMALITI ES SEEN edation Doc umentation - Keara Aaron RN - 09/14/2014 8:20 AM PSTIV SITE IN RIGHT HAND NOT DEBRA XIAO, FLUSHED WITHOUT POSITIVE RESULTS / RESTARTED TO LAC-22 JELCO iscellaneous - ONBASE SCAN [facility] - 09/14/2014 1 2:00 AM PST documented in thi s encounter Plan of Treatment +--------+---------+ + + + | Date | Type | Specialty | Care Team | Description | +--------+---------+ + + + | 12/25/ | Office | Neurology | Sesar Hernandez, | | | 2020 | Visit | | [address] | | | | | | [address] | | | | | | [place] [address] | | | | | | [phone] | | | | | | | | +--------+---------+ + + + | 01/16/ | Office | Cardiology | Tiffany Jonas, | | | 2020 | Visit | | MD [address] | | | | | | [facility] | | | | | | [phone] | | | | | | | [...] | [facility] | | GastroenterologyPatient Name: Luisa Linares Date: 09/14/2014 | [facility] | | 7:40 AMMRN: [id number] #: [id number] of : | | | 1960dmit Type: AmbulatoryAge: 54Room: [facility] 01Gender: FemaleNote | | | Status: FinalizedAttending MD: Gulshan Cifuentes, MDProcedure: | | | ColonoscopyIndications: Screening in patient [...] the nurse | | | and the diesel technician in the endoscopy suite. Mental Status [...] AMScope Out: 8:35:36 AM | | | [facility], [address] [place], [place] | | | [address] | | | - Return to previous [...] |Scope Out: 8:35:36 AM | | | Formerly [facility], [facility], [place], [place] | | | [address] | | + + -+ + + | Transcriptions | + + | Zay Warrenpr - 09/14/2014 12:00 AM PST | + + + +---------+ + + | Performing | Address | City/State/Zipcode | Phone Number | | Organization | | | | + +---------+ + + | [facility] | | | | + +---------+ + + documented in this encounter Visit Diagnoses + + | Diagnosis | + + | Screen for colon cancer - Primary Special screening for malignant neoplasms, colon | [...]
--- OUTSIDE RECORDS SUMMARY | ~2020-07-04 | XMS | Encounter Summary ---
Demographics + + + | Address | [address] | | | [place] [address] | + + + | Home Phone | | + + + | Preferred Language | Unknown | + + + | Marital Status | | + + + | Hinduism Affiliation | 1076 | + + + [...] [place] | | | | | [address] | | + + + + + | Dawit Kiser | ECON | Unknown | | + + + + + Care Team Providers + +------+ + | Care Application Support Lead Name | Role | Phone | + +------+ + | Derek Richards DO | PCP | | + +------+ + Reason for Visit + +--------+ + | Reason | Onset | Comments | | | Date | | + +--------+ + | Pharmacy / Med | 06/19/ | question | | | 2020 | | + +--------+ + Encounter Details +--------+ + + + + | Date | Type | Department | Care Team | Description | +--------+ + + + + | 06/19/ | Telephone | [facility] | Sesar Hernandez, | Pharmacy / Med | | 2019 | | NEUROLOGY [address] | (question) | | | | [address] | | | | | [place], [place] | [place] [address] | | | | | [address] | [phone] | | | | | [phone] | | | +--------+ + + + [...] Miscellaneous Notes Telephone Encounter - Remigio Vazquez, Multifocal Button Grinder - 06/19/2020 3:35 PM PDTCalled fanny jessie and spoke to Jennifer. She needed clarification on patient sig for medication. I let her know that I would have to talk with the provider and call her back. Called back and spoke to Francisco and the patient will take 1 tablet daily then increase aft er 4 weeks if needed. elephone Encounter - Merle Sullivan - 06/19/2020 12:57 PM PDTPharmacy, is c alling regarding Pharmacy / Med (question) and would like a call back. Additional Call Details: Question regarding Rx. [phone] If this is a symptom based call, was patient offered triage? Not Applicable If this is a symptom based call and you were unable to immediately transfer the call to a [facility] records administrator was caller made aware that if at any time she feels it is an emergency they ould call 911 or go to the [...] | | | | | [place] [address] | | | | | | [phone] | | | | | | | | +--------+---------+ + + + | 01/16/ | Office | Cardiology | Tiffany Jonas, | | | 2020 | Visit | | MD [address] | | | | | | [place] | | | | | | [address] | | | | | | | | +--------+---------+ + + + documented as of this encounter Visit Diagnoses Not on filedocumented in this encounter"
--- OUTSIDE RECORDS SUMMARY | ~2020-07-04 | XMS | Encounter Summary ---
Demographics + + + | Address | [address] | | | [place] [address] | + + + | Home Phone | | + + + | Preferred Language | Unknown | + + + | Marital Status | | + + + | Hindu Affiliation | 1076 | + + + [...] [place] | | | | | [address] | | + + + + + | Dawit Kiser | ECON | Unknown | | + + + + + Care Team Providers + +------+ + | Care Screen Making Supervisor Name | Role | Phone | + +------+ + | Derek Richards DO | PCP | | + +------+ + Encounter Details +--------+ + + + + | Date | Type | Department | Care Team | Description | +--------+ + + + + | 06/02/ | Orders Only | [facility] | Provider, | Multiple sclerosis | | 2019 | | SYSTEM GENERIC OP | [address] | ([facility]) | | | | [address] | [address] | | | | | [address] [place], [place] | [place] [address] | | | | | [address] | | | | | | [phone] | | | +--------+ + + + [...] | | | | | [place] [address] | | | | | | [phone] | | | | | | | | +--------+---------+ + + + | 01/16/ | Office | Cardiology | Tiffany Jonas, | | | 2020 | Visit | | [address] | | | | | | [place] | | | | | | [address] | | | | | | | | +--------+---------+ + + + + +------+--------+ + + | Name | Type | Priori | Associated Diagnoses | Order Schedule | | | | ty | | | + +------+--------+ + + | Hepatic Function | Lab | Routin | Multiple sclerosis | Expected: | | Panel | | e | (HCC) | 10/19/2018, Expires: | | | | | | 10/19/2019 | + +------+--------+ + + | Hepatic Function | Lab | Routin | Multiple sclerosis | Expected: | | Panel | | e | (HCC) | 05/03/2019, Expires: | | | | | | 05/03/2020 | + +------+--------+ + + | CBC with | Lab | Routin | Multiple sclerosis | Expected: | | Differential | | e | (HCC) | 05/03/2019, Expires: | | | | | | 05/02/2020 | + +------+--------+ + + documented as of this encounter Visit Diagnoses + + | Diagnosis | + + | Multiple sclerosis (HCC) Multiple sclerosis | + + documented in this encounter"
--- OUTSIDE RECORDS SUMMARY | ~2020-07-04 | XMS | Encounter Summary ---
Demographics + + + | Address | [address] | | | [place] [address] | + + + | Home Phone | | + + + | Preferred Language | Unknown | + + + | Marital Status | | + + + | Jainism Affiliation | [id number] | + + + [...] [place] | | | | | [address] | | + + + + + | Dawit Kiser | ECON | Unknown | | + + + + + Care Team Providers + +------+ + | Care Orchestra Teacher Name | Role | Phone | + +------+ + | Derek Richards DO | PCP | | + +------+ + Encounter Details +--------+ + + + + | Date | Type | Department | Care Team | Description | +--------+ + + + + | 10/20/ | Orders Only | [facility] | Sesar Hernandez, | | | 2017 | | [address] | [place] [address] | | | | | [place], [place] | [address] | | | | | [address] | [place] [address] | | | | | [phone] | [phone] | | | | | | | [...] | | | | | | [place] [address] | | | | | | [phone] | | | | | | | | +--------+---------+ + + + | 01/16/ | Office | Cardiology | Tiffany Jonas, | | | 2020 | Visit | | [address] | | | | | | [place] | | | | | | [address] | | | | | | | | +--------+---------+ + + + documented as of this encounter Procedures + +--------+ + + + | Procedure Name | Priori | Date/Time | Associated Diagnosis | Comments | | | ty | | | | + +--------+ + + + | EXTERNAL LAB: ABI | Routin | 10/20/2017 | | Results for this | | | e | 11:45 AM | | procedure are in the | | | | PST | | results section. | + +--------+ + + + | HEPATIC FUNCTION | Routin | 10/20/2017 | | Results for this | | PANEL | e | 11:45 AM | | procedure are in the | | | | PST | | results section. | + +--------+ + + + documented in this encounter Results External Lab: CBC (10/20/2017 11:45 AM PST) + + + + + + | Component | Value | Ref Range | Performed | Pathologist | | | | | At | Signature | + + + + + + | WBC | 6.73 | 3.80 - 11.00 | EXTERNAL | | | | | 10*3/uL | LAB | | + + + + + + | Non- | 4.90 | 3.70 - 5.10 | EXTERNAL | | | Red Blood | | 10*6/uL | LAB | | | Cells | | | | | | Counted | | | | | + + + + + + | Hemoglobin | 15.3 | 11.3 - 15.5 | EXTERNAL | | | | | g/dL | LAB | | + + + + + + | Hematocrit, | 43.9 | 34.0 - 46.0 % | EXTERNAL | | | POC | | | LAB | | + + + + + + | MCV | 89.7 | 80.0 - 100.0 fL | EXTERNAL | | | | | | LAB | | + + + + + + | MCH | 31.2 | 27.0 - 34.0 pg | EXTERNAL | | | | | | LAB | | + + + + + + | MCHC | 34.8 | 32.0 - 35.5 | EXTERNAL | | | | | g/dL | LAB | | + + + + + + | RDW-CV | 41.6 | 37 - 53 fL | EXTERNAL | | | | | | LAB | | + + + + + + | Platelet | 217 | 150 - 400 | EXTERNAL | [...] + + + | % Segmented | 66.87 | % | EXTERNAL | | | | | | LAB | | | Neutrophils | | | | | + + + + + + | % | 23.02 | % | EXTERNAL | | | Lymphocytes | | | LAB | | + + + + + + | % Monocytes | 7.99 | % | EXTERNAL | | | | | | LAB | | + + + + + + | % | 1.53 | % | EXTERNAL | | | Eosinophils | | | LAB | | + + + + + + | % Basophils | 0.59 | % | EXTERNAL | | | | | | LAB | | + + + + + + | Absolute | 4.50 | 1.90 - 7.40 | EXTERNAL | | | Segmented | | 10*3/uL | LAB | | | Neutrophils | | | | | + + + + + + | Absolute | 1.55 | 1.00 - 3.90 | EXTERNAL | | | Lymphocytes | | 10*3/uL | LAB | | + + + + + + | Absolute | 0.54 | 0.00 - 0.80 | EXTERNAL | | | Monocytes | | 10*3/uL | LAB | | + + + + + + | Absolute | 0.10 | 0.00 - 0.50 | EXTERNAL | | | Eosinophils | | 10*3/uL | LAB | | + + + + + + | Absolute | 0.04 | 0.00 - 0.10 | EXTERNAL | [...] + +---------+ + + Hepatic Function Panel (10/20/2017 11:45 AM PST) + +-------+ + + + | Component | Value | Ref Range | Performed | Pathologist | | | | | At | Signature | + +-------+ + + + | Protein, | 7.5 | 6.3 - 8.2 g/dL | EXTERNAL [...] +-------+ + + + | Bilirubin | 0.2 | 0.0 - 0.3 mg/dL | EXTERNAL | | | Direct | | | LAB | | + +-------+ + + + | ALP, | 71 | 35 - 115 U/L | EXTERNAL | | | External | | | LAB | | + +-------+ + + + | AST | 17 | 10 - 45 U/L | EXTERNAL | | | | | | LAB | | + +-------+ + + + | ALT | 32 | 10 - 65 U/L | EXTERNAL [...]
[~2020-07-04 07:50] MED LIST: ADVIL200 MG PO; ESTRADIOL TRAN1 EAC1 TD; HYDROCODON-ACE1 EA11 PO; REBIF 44 M44 MCG/0.5 SUB-Q; TOPROL XL50 MG PO; TRAMADOL HCL50 MG PO; VITAMIN D5000 UNIT PO; WOMEN'S DAILY1 EAC2 PO
--- OUTSIDE RECORDS SUMMARY | 2020-07-04 07:52 | XMS ---
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 Dain has no Care Guidelines for this patient. Deneen VISIT COUNT (12 MO.) 1 FERMÍN Steiner TOTAL 1 NOTE: Visits indicate total known visits. ED/UCC VISIT TRACKING (12 MO.) 07/04/2020 07:51 FERMÍN Turner OR TYPE: Emergency COMPLAINT: - ABD PAIN INPATIENT VISIT TRACKING (12 MO.) No inpatient visits to display in this time frame [email or web address]
[2020-07-04] MEDS ORDERED: NORCO 5-325 TA1 EACH PO (11:04)
[2020-07-04] MEDS ORDERED: ONDANSETRON ODT4 MG PO (11:04)
== END 2020-07-04 11:16 | disposition home or self-care (01) ==
LOC: ED 07:50
DX: N13.2 Hydronephrosis with renal and ureteral calculous obstruction (principal); Z88.1 Allergy status to other antibiotic agents; Z88.5 Allergy status to narcotic agent; Z79.899 Other long term (current) drug therapy
CPT/HCPCS: 74176; 80053; 81001; 85025; 96374; 96375; 96376; 99284-25; J1170; J1885; J2405